=== PATIENT | female | born 1990 | race Caucasian/White ===

== ENCOUNTER 2020-10-10 18:29 | Inpatient (IN) ==
[2020-10-10] MEDS ORDERED: GADOBUTROL 65ML VIAL IV ONE (21:37)
[2020-10-10] MEDS ORDERED: VANCOMYCIN CONSULT ACTIVE PRN (22:20)
[2020-10-10] MEDS ORDERED: VANCOMYCIN HCL 2,000 MG in SODIUM CHLORIDE 0.9% 500 ML IV ONE (22:20)
[2020-10-10] MEDS ORDERED: SODIUM CHLORIDE 0.9% 500 ML IV SCH (22:30)
--- NOTE | 2020-10-10 23:11 | Emergency Department Note ---
History of Present Illness General Chief complaint: Infection Stated complaint: INFECTION; LOWER BACK Time Seen by Provider: 10/10/20 21:33 History of Present Illness Maximum Pain Intensity: 3 30-year-old female presents to the ED with a chief complaint of a infection in her lumbar region from a L5-S1 discectomy about a month ago. She was seen by her back surgeon today and she was told to come into the hospital tonight to be admitted for IV antibiotics and MRI with plans on operation tomorrow. The patient saw the back surgeon today in the office. She complains of some back discomfort. This is worsened by movement. Home Medications Medication Instructions Recorded Confirmed Type lorazepam 0.5 mg tablet 0.5 mg PO DAILY PRN #30 tab 08/15/20 10/10/20 Rx escitalopram oxalate 20 mg tablet 20 mg PO QAM 09/11/20 10/10/20 History omeprazole 20 mg capsule,delayed 20 mg PO QAM 09/11/20 10/10/20 History release gabapentin 100 mg capsule 100 mg PO Q8H #42 cap 09/13/20 10/10/20 Rx hydrocodone 5 mg-acetaminophen 325 1 - 2 tab PO Q4H PRN #20 tab 09/13/20 10/10/20 Rx mg tablet cephalexin 500 mg tablet 500 mg PO Q6H 14 Days #56 tab 09/29/20 10/10/20 Rx drospirenone 3 mg-ethinyl 1 tab PO DAILY 10/10/20 10/10/20 History estradiol 0.02 mg tablet (Loryna (28)) Allergies Allergy/AdvReac Type Severity Reaction Status Date / Time No Known Allergies Allergy Verified 10/10/20 22:03 Past Med/Surg History Medical History Anxiety and depression DDD (degenerative disc disease) GERD (gastroesophageal reflux disease) PCOS (polycystic ovarian syndrome) Surgical History H/O knee surgery Rt History of [place] teeth extracted Family History Mother Hypothyroidism Grandmother (Maternal) Hypothyroidism Grandmother (Paternal) Ovarian cancer Hypothyroidism Uterine cancer Other No family history of adverse response to anesthesia Social History Smoking Status: Never smoker Second Hand Exposure: No; Hx Alcohol Use: Yes Alcohol type: wine Hx Substance Use: No Preferred Language: [place]an Communication Ability: Effective Visual Impairment: Limited Hearing Ability: Normal Beliefs That Will Affect Care: None marital status: Current Living Situation: Spouse and Family Current Living Situation Comment: and 3 children current occupational status: employed Feels Safe at Home: Yes Childhood Exposure to Second-Hand Smoke: No Dental Care, Regularly: Yes Physical Activity Frequency: 3-4 Times per Week Seatbelt Use: always Sunscreen Use: Yes Assistive Devices: Contacts and Glasses Review of Systems A total of 10 systems reviewed and were otherwise negative Physical Exam Vital Signs Vital Signs - 24 hr 10/10/20 18:41 10/10/20 22:11 10/10/20 22:21 Temperature 37.2 C Temperature Source Temporal Artery Scan Pulse Rate 104 H 84 Pulse Rate from SpO2 Sensor 94 H Respiratory Rate 18 20 Respiratory Effort / Characteristics Non-Labored Spontaneous Respiratory Depth Normal Blood Pressure 125/88 108/87 Blood Pressure Mean 100 94 Blood Pressure Position Sitting Pulse Oximetry 99 90 98 Oxygen Delivery Method Room Air Room Air Sepsis Recent Fever Within 48 Hours No Sepsis New/Unexplained Change in Mental Status N/A Sepsis Action Taken by Nursing No Action Required 10/10/20 22:31 10/10/20 23:00 10/10/20 23:30 Temperature Temperature Source Pulse Rate 89 70 86 Pulse Rate from SpO2 Sensor 89 69 83 Respiratory Rate 20 14 24 Respiratory Effort / Characteristics Respiratory Depth Blood Pressure 102/86 129/85 117/77 Blood Pressure Mean 91 99 90 Blood Pressure Position Pulse Oximetry 99 99 99 Oxygen Delivery Method Sepsis Recent Fever Within 48 Hours Sepsis New/Unexplained Change in Mental Status Sepsis Action Taken by Nursing CONSTITUTIONAL/VITAL SIGNS: Reviewed / noted above. GENERAL: Non-toxic in appearance. INTEGUMENTARY: Warm, dry, and [place]. HEAD: Normocephalic. EYES: without scleral icterus or trauma. ENT/OROPHARYNX: clear and moist. LYMPHADENOPATHY/NECK: Is supple without lymphadenopathy or meningismus. RESPIRATORY: Clear to auscultation bilaterally. No increased work of breathing. CARDIOVASCULAR: Regular rate and rhythm. GI/ABDOMEN: Soft and nontender. No organomegaly or pulsatile mass. EXTREMITIES: Warm and well perfused. BACK: No CVA tenderness. There is an incision in the low back that appears to be somewhat dehisced. There are some mild erythema. There is also noted to be some discharge on the bandages. NEUROLOGICAL: Intact without focal deficits. PSYCHIATRIC: normal affect. MUSCULOSKELETAL: Normally developed with good muscle tone. TRIAGE NURSING DOCUMENTATION REVIEWED. Course Administered Medications Discontinued Medications Gadobutrol (Gadobutrol 65ml Vial) 7.5 ml IV ONCE ONE Stop: 10/10/20 21:38 Last Admin: 10/10/20 21:39 Dose: 7.5 ml Documented by: [id number] Medical Decision Making Differential Diagnosis Cellulitis, abscess, MRSA infection, DVT, necrotizing fasciitis, dermatitis, drug eruption, allergic reaction, as well as other pathologies. Medical Records Attestation: I reviewed the patient's medical records. Home Medications Current Medication List: was personally reviewed by me Laboratory Data Attestation: I reviewed the patient's lab results. Result diagrams: 10/10/20 23:18 10/10/20 23:18 Lab Results 10/10/20 10/10/20 10/10/20 Range/Units 23:00 23:00 23:18 WBC 8.37 (4.8-10.8) K/uL RBC 4.38 (4.2-5.4) M/uL Hgb 13.1 (12.0-16.0) g/dL Hct 38.9 (37-47) % MCV 88.8 (80-100) fL MCH 29.9 (25-34) pg MCHC 33.7 (32-36) g/dL RDW Std Deviation 39.9 (36.4-46.3) fL RDW Coeff of Rigo 12.4 (11.5-14.5) % Plt Count 301 (130-400) K/uL MPV 9.9 (7.4-10.4) fL Immature Gran % (Auto) 0.1 % Neut % (Auto) 56.1 % Lymph % (Auto) 36.8 % Amelia % (Auto) 6.0 % Eos % (Auto) 0.4 % Baso % (Auto) 0.6 % Neut # (Auto) 4.70 (1.4-6.5) K/uL Lymph # (Auto) 3.08 (1.2-3.4) K/uL Amelia # (Auto) 0.50 (0.11-0.59) K/uL Eos # (Auto) 0.03 (0-0.5) K/uL Baso # (Auto) 0.05 (0-0.2) K/uL Immature Gran # (Auto) 0.01 (0.00-0.02) K/uL Sodium (136-145) mmol/L Potassium (3.5-5.1) mmol/L Chloride (98-107) mmol/L Carbon Dioxide (21-32) mmol/L Anion Gap (3-11) BUN (7-18) mg/dl Creatinine (0.6-1.2) mg/dl Est Cr Clr Drug Dosing ml/min Est GFR ( Amer) ml/min Est GFR (Non-Af Amer) ml/min BUN/Creatinine Ratio (10-20) Glucose (70-99) mg/dl Calcium (8.5-10.1) mg/dl Total Bilirubin (0.2-1) mg/dl AST (15-37) U/L ALT (12-78) U/L Alkaline Phosphatase (45-117) U/L Total Protein (6.4-8.2) gm/dl Albumin (3.4-5.0) gm/dl Globulin (2.5-4.0) gm/dl Albumin/Globulin Ratio (0.9-2) TSH (0.300-4.500) uIu/ml Specimen Hemolysis COVID-19 Eval Order Covid19 at [facility] SARS-CoV-2 (PCR) NEGATIVE (Negative) 10/10/20 Range/Units 23:18 WBC (4.8-10.8) K/uL RBC (4.2-5.4) M/uL Hgb (12.0-16.0) g/dL Hct (37-47) % MCV (80-100) fL MCH (25-34) pg MCHC (32-36) g/dL RDW Std Deviation (36.4-46.3) fL RDW Coeff of Rigo (11.5-14.5) % Plt Count (130-400) K/uL MPV (7.4-10.4) fL Immature Gran % (Auto) % Neut % (Auto) % Lymph % (Auto) % Amelia % (Auto) % Eos % (Auto) % Baso % (Auto) % Neut # (Auto) (1.4-6.5) K/uL Lymph # (Auto) (1.2-3.4) K/uL Amelia # (Auto) (0.11-0.59) K/uL Eos # (Auto) (0-0.5) K/uL Baso # (Auto) (0-0.2) K/uL Immature Gran # (Auto) (0.00-0.02) K/uL Sodium 140 (136-145) mmol/L Potassium 3.7 (3.5-5.1) mmol/L Chloride 108 H (98-107) mmol/L Carbon Dioxide 24 (21-32) mmol/L Anion Gap 8.0 (3-11) BUN 8 (7-18) mg/dl Creatinine 0.70 (0.6-1.2) mg/dl Est Cr Clr Drug Dosing 115.9 ml/min Est GFR ( Amer) 133.8 ml/min Est GFR (Non-Af Amer) 115.5 ml/min BUN/Creatinine Ratio 11.8 (10-20) Glucose 88 (70-99) mg/dl Calcium 8.7 (8.5-10.1) mg/dl Total Bilirubin 0.3 (0.2-1) mg/dl AST 15 (15-37) U/L ALT 14 (12-78) U/L Alkaline Phosphatase 87 (45-117) U/L Total Protein 7.4 (6.4-8.2) gm/dl Albumin 3.4 (3.4-5.0) gm/dl Globulin 4.0 (2.5-4.0) gm/dl Albumin/Globulin Ratio 0.9 (0.9-2) TSH 4.680 H (0.300-4.500) uIu/ml Specimen Hemolysis COVID-19 Eval Order SARS-CoV-2 (PCR) (Negative) Imaging Data Radiologist's Impression: MRI of the lumbar spine reveals a superficial soft tissue abscess as well as some inflammation adjacent to the right paraspinal area. Small extradural abscess at the laminectomy site. Epidural inflammation and deformity of the thecal sac. Inflammatory changes along the right L5 and S1 nerve roots. The patient CBC and chemistry panel was unremarkable. The patient will be seen by the hospitalist for further inpatient evaluation and care. She was treated with IV vancomycin. 4 days MDM Narrative Patient presents with concerns of back infection. MRI suggest that that is the case. She will be admitted by the hospitalist service. She was given IV vancomycin. She will be seen tomorrow by the orthopedic spine surgeon. Impression & Plan Infection Discharge Plan Visit Data Chief Complaint: Infection Stated Complaint: INFECTION; LOWER BACK ED Provider: Abdelrahman Cedeño Discharge Problem: Infection Forms Stand Alone Forms: [facility] [place] [employer] Prescriptions Prescriptions: No Action lorazepam 0.5 mg tablet 0.5 mg PO DAILY PRN (Reason: anxiety) Qty: 30 RF: 0 cephalexin 500 mg tablet 500 mg PO Q6H 14 Days Qty: 56 RF: 1 omeprazole 20 mg capsule,delayed release(DR/EC) 20 mg PO QAM RF: 0 escitalopram oxalate 20 mg tablet 20 mg PO QAM RF: 0 hydrocodone-acetaminophen 5-325 mg Tablet 1 - 2 tab PO Q4H PRN (Reason: pain) Qty: 20 RF: 0 gabapentin 100 mg capsule 100 mg PO Q8H Qty: 42 RF: 0 drospirenone-ethinyl estradiol [Loryna (28)] 3-0.02 mg tablet 1 tab PO DAILY RF: 0 Referrals Referrals: Diandra Ray CRNP [Primary Care Provider] -
--- NOTE | 2020-10-10 23:28 | History & Physical Report ---
Date of Service October 10, 2020 Assessment & Plan (1) Spinal abscess: Plan: 30 yo F with hx GERD, PCOS, recent lumbar microdiscectomy at L5/S1, admitted for management of post-op spinal abscess. Spinal Abscess - Lumbar MRI: midline subcutaneous tissues at L5-S1 level is a irregular collection measuring 4.4cm CC, 3 cm TRV and 3 cm AP with rim enhancement around the margins. Impression: superficial soft tissue abscess at L5-S1, small extra dural abscess at laminectomy site. Epidural inflammation resulting in deformity of thecal sac. Inflammatory changes along right L5 and S1 nerve roots. - Spinal surgeon aware, to go for surgery in AM - Vanc - CBC normal, afebrile, nontoxic appearing - Q4h neurovascular checks, Q2H neuro exam checks - PRN tylenol for fever/pain - prn gabapentin for nerve pain Chronic Conditions: anx/depression: continue escitalopram PCOS: cont home OCP GERD: IV famotidine DVT ppx: low risk, will hold given surgery in AM FEN/GI: NPO, iv famotidine Dispo: Med/Tele Code Status: Full Code (2) Status post spinal surgery: (3) GERD without esophagitis: (4) PCOS (polycystic ovarian syndrome): (5) H/O microdiscectomy: History of Present Illness Chief Complaint: draining surgical site, s/p laminectomy Primary Care Provider: PPAA Gottlieb 30 yo F 2 weeks post op from L5-S1 microdiscectomy on 09/13/20, sent to ER by spine surgeon for persistently draining incision site. Was started on keflex for 14 days on 09/29 for incision infection, but has had persistent drainage despite antibiotic therapy. She denies any nausea, vomiting, diarrhea, new numbness/tingling/weakness in the lower extremities. She denies any incontinence of urine/stool, no pelvic numbness/tingling. No fevers/chills/night sweats. Lumbar spine MRI showing abscess superficial to spinal cord but with epidural inflammation. Admission for antibiotic management and surgery in the AM. Allergies Allergy/AdvReac Type Severity Reaction Status Date / Time No Known Allergies Allergy Verified 10/10/20 22:03 Home Medications Medication Instructions Recorded Confirmed Type lorazepam 0.5 mg tablet 0.5 mg PO DAILY PRN #30 tab 08/15/20 10/10/20 Rx escitalopram oxalate 20 mg tablet 20 mg PO QAM 09/11/20 10/10/20 History omeprazole 20 mg capsule,delayed 20 mg PO QAM 09/11/20 10/10/20 History release gabapentin 100 mg capsule 100 mg PO Q8H #42 cap 09/13/20 10/10/20 Rx hydrocodone 5 mg-acetaminophen 325 1 - 2 tab PO Q4H PRN #20 tab 09/13/20 10/10/20 Rx mg tablet cephalexin 500 mg tablet 500 mg PO Q6H 14 Days #56 tab 09/29/20 10/10/20 Rx drospirenone 3 mg-ethinyl 1 tab PO DAILY 10/10/20 10/10/20 History estradiol 0.02 mg tablet (Loryna (28)) Past Med/Surg History Medical History (Updated 10/11/20 @ 01:02 by Sandra Raygoza MD) Anxiety and depression DDD (degenerative disc disease) GERD (gastroesophageal reflux disease) PCOS (polycystic ovarian syndrome) Surgical History (Updated 10/11/20 @ 01:02 by Sandra Raygoza MD) H/O knee surgery Rt History of Status post spinal surgery [place] teeth extracted Family History Mother Hypothyroidism Grandmother (Maternal) Hypothyroidism Grandmother (Paternal) Ovarian cancer Hypothyroidism Uterine cancer Other No family history of adverse response to anesthesia Social History Smoking Status: Never smoker Second Hand Exposure: No; Hx Alcohol Use: Yes Alcohol type: wine Hx Substance Use: No Preferred Language: French Communication Ability: Effective Visual Impairment: Limited Hearing Ability: Normal Beliefs That Will Affect Care: None marital status: Current Living Situation: Spouse and Family Current Living Situation Comment: and 3 children current occupational status: employed Feels Safe at Home: Yes Childhood Exposure to Second-Hand Smoke: No Dental Care, Regularly: Yes Physical Activity Frequency: 3-4 Times per Week Seatbelt Use: always Sunscreen Use: Yes Assistive Devices: Contacts and Glasses Review of Systems Review of Systems: All systems reviewed & are unremarkable except as noted in Subjective Physical Exam Physical Exam: Constitutional: well, healthy appearing 30 year old female Eyes: EOMI, pupils equal and reactive bilaterally, no scleral icterus Cardiac: RRR, no murmurs, gallops or rubs. Normal S1, S2 Pulm: CTA BL, no wheezes, rhonchi, crackles or rubs, moving air well throughout both lungs Abd: soft, nontender, nondistended, normal bowel sounds, no rebound or guarding Extremities: 2+ peripheral pulses, no edema Neuro: no focal deficits, moving all 4 limbs, A&Ox3, sensation intact Back: spinal incision with some serous drainage onto bandage, visible draining hole Results & Data Results & Data ([facility]) Vital Signs (Past 12 Hours) Vital Signs Temp Pulse Resp BP Pulse Ox 10/10/20 18:41 37.2 C 104 H 18 125/88 99 Laboratory Results Laboratory Results WBC 8.37 K/uL (4.8-10.8) 10/10/20 23:18 RBC 4.38 M/uL (4.2-5.4) 10/10/20 23:18 Hgb 13.1 g/dL (12.0-16.0) 10/10/20 23:18 Hct 38.9 % (37-47) 10/10/20 23:18 MCV 88.8 fL (80-100) 10/10/20 23:18 MCH 29.9 pg (25-34) 10/10/20 23:18 MCHC 33.7 g/dL (32-36) 10/10/20 23:18 RDW Std Deviation 39.9 fL (36.4-46.3) 10/10/20 23:18 RDW Coeff of Rigo 12.4 % (11.5-14.5) 10/10/20 23:18 Plt Count 301 K/uL (130-400) 10/10/20 23:18 MPV 9.9 fL (7.4-10.4) 10/10/20 23:18 Immature Gran % (Auto) 0.1 % 10/10/20 23:18 Neut % (Auto) 56.1 % 10/10/20 23:18 Lymph % (Auto) 36.8 % 10/10/20 23:18 [place] % (Auto) 6.0 % 10/10/20 23:18 Eos % (Auto) 0.4 % 10/10/20 23:18 Baso % (Auto) 0.6 % 10/10/20 23:18 Neut # (Auto) 4.70 K/uL (1.4-6.5) 10/10/20 23:18 Lymph # (Auto) 3.08 K/uL (1.2-3.4) 10/10/20 23:18 [place] # (Auto) 0.50 K/uL (0.11-0.59) 10/10/20 23:18 Eos # (Auto) 0.03 K/uL (0-0.5) 10/10/20 23:18 Baso # (Auto) 0.05 K/uL (0-0.2) 10/10/20 23:18 Immature Gran # (Auto) 0.01 K/uL (0.00-0.02) 10/10/20 23:18 Sodium 140 mmol/L (136-145) 10/10/20 23:18 Potassium 3.7 mmol/L (3.5-5.1) 10/10/20 23:18 Chloride 108 mmol/L (98-107) H 10/10/20 23:18 Carbon Dioxide 24 mmol/L (21-32) 10/10/20 23:18 Anion Gap 8.0 (3-11) 10/10/20 23:18 BUN 8 mg/dl (7-18) 10/10/20 23:18 Creatinine 0.70 mg/dl (0.6-1.2) 10/10/20 23:18 Est Cr Clr Drug Dosing 115.9 ml/min 10/10/20 23:18 Est GFR ( Amer) 133.8 ml/min 10/10/20 23:18 Est GFR (Non-Af Amer) 115.5 ml/min 10/10/20 23:18 BUN/Creatinine Ratio 11.8 (10-20) 10/10/20 23:18 Glucose 88 mg/dl (70-99) 10/10/20 23:18 Calcium 8.7 mg/dl (8.5-10.1) 10/10/20 23:18 Total Bilirubin 0.3 mg/dl (0.2-1) 10/10/20 23:18 AST 15 U/L (15-37) 10/10/20 23:18 ALT 14 U/L (12-78) 10/10/20 23:18 Alkaline Phosphatase 87 U/L (45-117) 10/10/20 23:18 Total Protein 7.4 gm/dl (6.4-8.2) 10/10/20 23:18 Albumin 3.4 gm/dl (3.4-5.0) 10/10/20 23:18 Globulin 4.0 gm/dl (2.5-4.0) 10/10/20 23:18 Albumin/Globulin Ratio 0.9 (0.9-2) 10/10/20 23:18 TSH 4.680 uIu/ml (0.300-4.500) H 10/10/20 23:18 Free T4 1.08 ng/dl (0.8-1.6) 10/10/20 23:18 Specimen Hemolysis 10/10/20 23:18 COVID-19 Eval Order Covid19 at [facility] 10/10/20 23:00 SARS-CoV-2 (PCR) NEGATIVE (Negative) 10/10/20 23:00 Supervising Physician Co-Signing Physician Notes Patient seen and examined, chart reviewed, case discussed with Dr. Raygoza and I agree with her assessment and plan as documented above. Briefly, patient is a 30-year-old female status post L5-S1 microdiscectomy performed on 09-13-20 presenting with persistent incisional drainage. She has been on Keflex since 09/29 with no improvement. She denies fever/chills/weakness/fatigue/malaise/nausea. Denies worsening pain in the back. Denies new or worsening weakness or neurological deficit. She has a dressing in place over her surgical site and reports yellowish/pinkish discharge persistent. On physical exam she is afebrile, hemodynamically stable, nontoxic in appearance Skinsurgical site covered with serous drainage, mild dehiscence with drainage HEENTnormocephalic/atraumatic, pupils equal and reactive to light, neck supple with no meningeal signs Heart+ S1, S2, regular, no murmur/rub/gallop Lungsequal air entry bilaterally, no rales/rhonchi/wheezes Abdomenpositive bowel sounds, soft, nontender, nondistended Extremitieswarm, well-perfused, no edema Neurosensation intact, strength 5/5 Labs and images reviewed. Significant for irregular collection measuring 4.4 cm x 3 cm x 3 cm located in the subcutaneous tissues at the L5-S1 level. Rim enhancement around the margins of this collection. Enhancing tissue extending from the collection along the right side of the L5 spinous process into the deep right paraspinal muscle through the laminectomy defect and into the spinal canal. Epidural medication resulting in deformity of the thecal sac. Assessment/[id number] female status post L5-S1 microdiscectomy performed on 09/05/2020 returning with surgical site abscess. Patient afebrile, hemodynamically stable, nontoxic in appearance. No systemic evidence of infect ion. No new neurological deficits Admit to medical IV antibiotics with vancomycin N.p.o. after midnight in preparation for OR tomorrow for washout Remainder of plan as above Resident Activity Tracking Resident Involvement: Resident Care Provided Care Provided: Adult [facility] Medicine
[2020-10-10 23:39] LABS: Basophils # (auto) 0.05 K/uL (0-0.2); Basophils % (auto) 0.6 %; Eosinophils # (auto) 0.03 K/uL (0-0.5); Eosinophils % (auto) 0.4 %; Hematocrit (blood only) 38.9 % (37-47); Hemoglobin 13.1 g/dL (12.0-16.0); Immature Granulocytes # (auto) 0.01 K/uL (0.00-0.02); Immature Granulocytes % (auto) 0.1 %; Lymphocytes # (auto) 3.08 K/uL (1.2-3.4); Lymphocytes % (auto) 36.8 %; Mean Corpuscular Hemoglobin 29.9 pg (25-34); Mean Corpuscular Hgb Conc 33.7 g/dL (32-36); Mean Corpuscular Volume 88.8 fL (80-100); Mean Platelet Volume 9.9 fL (7.4-10.4); Neutrophils % (auto) 56.1 %; Platelet Count 301 K/uL (130-400); RDW Coefficient of Variation 12.4 % (11.5-14.5); RDW Standard Deviation 39.9 fL (36.4-46.3); Red Blood Count 4.38 M/uL (4.2-5.4); White Blood Count 8.37 K/uL (4.8-10.8)
[2020-10-11 00:20] LABS: Albumin Globulin Ratio 0.9 (0.9-2); Albumin Level 3.4 gm/dl (3.4-5.0); BUN Creatinine Ratio 11.8 (10-20); Bilirubin,Total 0.3 mg/dl (0.2-1); Calcium 8.7 mg/dl (8.5-10.1); Creatinine Clr Calc Pharmacy 115.9 ml/min; Est GFR (African American) 133.8 ml/min; Est GFR (Non-African American) 115.5 ml/min; Potassium 3.7 mmol/L (3.5-5.1); Thyroid Stimulating Hormone 4.68 uIu/ml (0.300-4.500); Total Protein 7.4 gm/dl (6.4-8.2)
[2020-10-11 00:38] LABS: T4 Free Thyroxine 1.08 ng/dl (0.8-1.6)
[2020-10-11 02:16] LABS: Appearance Urine Clear (Clear); Bilirubin Urine Negative (Negative); Blood Urine Negative (Negative); Color Urine Yellow; Glucose Urine UA Negative (Negative); Ketones Urine Trace (Negative); Leukocyte Esterase Urine Negative (Negative); Nitrite Urine Negative (Negative); Protein Urine Negative (Negative); Specific Gravity Urine 1.033 (1.000-1.030); Urobilinogen Urine Negative (Negative)
[2020-10-11] MEDS ORDERED: ACETAMINOPHEN 325 MG TAB PO PRN (03:43)
[2020-10-11] MEDS ORDERED: LORazepam 0.5 MG TAB PO PRN ×2 (03:43→17:01)
[2020-10-11] MEDS ORDERED: ONDANSETRON INJ 2 MG/ML 2 ML VIAL IV PRN ×2 (03:43→11:46)
[2020-10-11] MEDS ORDERED: VANCOMYCIN CONSULT ACTIVE PRN (03:43)
--- NOTE | 2020-10-11 03:54 | Billing Data ---
Date of Service October 10, 2020 Coding Level of Care Code 27313 Initial Inpt Care Lvl 2
[2020-10-11] MEDS: SODIUM CHLORIDE 0.9% 1000ML 1,000 ML IV SCH ×2 (05:19→17:06)
[2020-10-11] MEDS: GABAPENTIN 100 MG CAP PO SCH ×3 (05:19→18:07)
--- NOTE | 2020-10-11 06:44 | Orthopedic Progress Note ---
Date of Service October 11, 2020 Assessment & Plan (1) Status post spinal surgery: Plan: Informed consent confirmed for today's operation: Irrigation and Debridement Lumbar Spine Hold antibiotics until intra-op cultures completed (2) Wound drainage: Admission and Anticipated Discharge Date Admission Date: October 10, 2020 Subjective Patient comfortable in bed No new numbness/weakness No increase in back pain denies headache, nausea or vomiting, diplopia denies radiation of pain from back to lower extremity MRI lumbar w/wo completed overnight recommendations for no antibiotics was given until intra-op cultures taken today but unfortunately, she received one dose of vancomycin IV overnight. this has been stopped since. npo for surgery patient marked, any remaining questions answered Physical Exam Physical Exam: vitals: see vital signs section dressing: mild serosang discharge drain: N/A vascular: no calf tenderness or swelling bilaterally. no signs of DVT Musculoskeletal: 5/5 motor strength bilateral L2-S1 except right L5 3/5 toe extension, 4/5 ankle dorsiflexion, right S1 4/5 (unchanged from before index s urgery) Neurologic: Sensation 2/2 to light touch bilateral L2-S1 except right L5 1/2, S1 1/2 Results & Data ([facility]) Vital Signs (Past 12 Hours) Vital Signs Temp Pulse Resp BP BP Pulse Ox 10/11/20 04:20 74 10/11/20 04:10 36.5 C 12 115/75 97 10/11/20 03:51 97 10/11/20 01:15 77 14 118/72 99 10/11/20 01:00 82 14 121/78 98 10/11/20 00:30 70 16 97 10/11/20 00:02 95 H 25 H 10/10/20 23:30 86 24 117/77 99 10/10/20 23:00 70 14 129/85 99 10/10/20 22:47 36.5 C 14 115/75 97 10/10/20 22:31 89 20 102/86 99 10/10/20 22:21 98 10/10/20 22:11 84 20 108/87 90 10/10/20 18:41 37.2 C 104 H 18 125/88 99 Laboratory Results Wound swabs cultures pending, negative gram stain and no organisms seen on gram stain Diagnostic Findings MRI lumbar w/wo contrast large fluid collection superficial to fascia smaller fluid collection at laminectomy site with no significant associated compression removal of previous disc herniation with small central disc bulge with no significant impingement on the traversing nerve root reported as " Vertebral body heights well-maintained. No abnormal marrow signal. L5-S1 moderate disc space narrowing. Small broad-based disc bulge with a right paracentral component at this level. Small central annular fissure. The conus is intact. Status post right hemilaminectomy. In the posterior midline subcutaneous tissues at the L5-S1 level is a irregular collection measuring 4.4 cm CC, 3 cm TRV and 3 cm AP. Rim enhancement around the margins of this collection. Enhancing tissue extending from this collection along the right side of the L5 spinous process into the deep right paraspinal muscles through the laminectomy defect and into the spinal canal. At the laminectomy defect there is a discrete loculated collection measuring 1.5 cm AP. There is enhancing tissue along the right lateral and anterior margin of the thecal sac. Mild deformity of the right posterolateral thecal sac margin. Enhancing tissue seen extending through the right L5-S1 neural foramen and surrounding the right S1 nerve root and extending into the right S1 neural foramen. Impression: Superficial soft tissue abscess at L5-S1. Adjacent right paraspinal inflammation. Small extradural abscess at the laminectomy site. Epidural inflammation as described resulting in deformity of the thecal sac. Inflammatory changes along the right L5 and S1 nerve roots. " PG Care Time/CCT Total # of Minutes Spent Total Time Spent with Patient: Total time spent is greater than 50% in coordination of care (as documented) at patient's floor/unit and/or counseling patient: Coding Level of Care Code None Diagnoses Status post spinal surgery Z98.890 Wound drainage T14.8XXA
[2020-10-11 06:55] LABS: Basophils # (auto) 0.04 K/uL (0-0.2); Basophils % (auto) 0.6 %; Eosinophils # (auto) 0.05 K/uL (0-0.5); Eosinophils % (auto) 0.7 %; Hematocrit (blood only) 36.8 % (37-47); Hemoglobin 12.2 g/dL (12.0-16.0); Immature Granulocytes # (auto) 0.01 K/uL (0.00-0.02); Immature Granulocytes % (auto) 0.1 %; Lymphocytes # (auto) 2.82 K/uL (1.2-3.4); Lymphocytes % (auto) 38.9 %; Mean Corpuscular Hemoglobin 29.2 pg (25-34); Mean Corpuscular Hgb Conc 33.2 g/dL (32-36); Mean Platelet Volume 9.2 fL (7.4-10.4); Monocytes # (auto) 0.47 K/uL (0.11-0.59); Monocytes % (auto) 6.5 %; Neutrophils # (auto) 3.86 K/uL (1.4-6.5); Neutrophils % (auto) 53.2 %; Platelet Count 254 K/uL (130-400); RDW Coefficient of Variation 12.4 % (11.5-14.5); RDW Standard Deviation 40.1 fL (36.4-46.3); Red Blood Count 4.18 M/uL (4.2-5.4); White Blood Count 7.25 K/uL (4.8-10.8)
--- NOTE | 2020-10-11 07:28 | Medical Student Progress Note ---
Date of Service October 11, 2020 Assessment & Plan (1) Spinal abscess: Plan: Lumbar MRI impression: superficial soft tissue abscess at L5-S1, small extradural abscess at laminectomy site. Epidural inflammation resulting in deformity of thecal sac. -No WBC or organism count at site -minimally elevated c-reactive protein -blood cultures are pending -Aerobic/anaerobic cultures pending -consistent with spinal abscess -CBC normal, afebrile, nontoxic appearing -Q4h neurovascular checks, Q2H neuro exam checks -PRN tylenol for fever/pain -prn gabapentin for nerve pain -irrigation and debridement for lumbar spine surgery to be done later this am Present on Admission?: Yes (2) Fatigue: Plan: -highest recorded TSH 4.680 -says her TSH always runs high-normal but today is abnormally high -extensive fam hx of hypothyroidism -states her fatigue is chronic -pt got minimal sleep last night -repeat TSH after discharge to see if her TSH returns to baseline -f/u with PCP to be fully evaluated for TSH abnormalities Present on Admission?: Yes (3) Lumbar back pain with radiculopathy affecting right lower extremity: Plan: -motor strength 4+/5 for knee extensors and toe extensors -sensory grossly intact in all four limbs -Pt states pain is unchanged from baseline -pt has no further concerns at this time Present on Admission?: Yes Plan: Chronic Conditions: anx/depression: continue escitalopram PCOS: cont home OCP GERD: IV famotidine DVT ppx: low risk, will hold given surgery in AM FEN/GI: NPO, iv famotidine Dispo: Med/Tele Code Status: Full Code (2) Status post spinal surgery: (3) GERD without esophagitis: (4) PCOS (polycystic ovarian syndrome): (5) H/O microdiscectomy: Admission and Anticipated Discharge Date Admission Date: October 10, 2020 Hayde Darnell is a 30 yr/oF w a hx of anxiety/depression, GERD, DDD, PCOS s/p L5-S1 microdiscectomy who was admitted yesterday for management of a post-op spinal abscess. About a week ago she noticed signs of inflammation around the surgical site and was prescribed cefalexin from her surgeon. The infection wasn't improving and her surgeon had her admitted to the hospital for IV a/bx. Today, she has no concerns other than fatigue from poor sleep last night. She noted fatigue is common for her recently. Discomfort in her lower back is minimal. She denies any chest pain, SOB, abdominal pain, neck pain or stiffness. She does have a headache today but says that is normal for her. She is is not having any weakness, numbness, tingling, or pain in her lower extremities except for preexisting weakness she has had in the right leg before the surgery. She denies incontinence of urine or stool. Pt is scheduled for irrigation and debridement of the lumbar spine today. Review of Systems Review of Systems: All systems reviewed & are unremarkable except as noted in HPI & below Physical Exam Constitutional: non-toxic appearing, no acute distress Eyes: PERRL, conjunctivae normal, anicteric sclerae ENMT: external ear and nose normal, oropharynx normal Neck: normal visual inspection Respiratory: normal respiratory effort, lungs clear to auscultation Cardiovascular: RRR, no murmur, no edema Musculoskeletal: minimal lower back tenderness Skin: no rashes, warm and dry Neurologic: PERRL, EOMI, accommodation nl, no face palsy, no dysarthria normal touch/pain/proprioception, CN's II-XI intact bilaterally, deep tendon reflexes 2+ bilaterally and plantar reflexes intact bilaterally 4+/5 weakness lower right extremity, sensory intact bilaterally Psychiatric: Orientation: cooperative Results & Data ([facility]) Vital Signs (Past 12 Hours) Vital Signs Temp Pulse Pulse Resp BP BP BP 10/11/20 11:30 36.8 C 74 18 151/97 H 10/11/20 11:25 37 C 84 20 116/82 10/11/20 08:19 36.8 C 77 16 114/79 10/11/20 08:00 73 10/11/20 04:20 74 10/11/20 04:10 36.5 C 12 115/75 10/11/20 03:51 10/11/20 01:15 77 14 118/72 10/11/20 01:00 82 14 121/78 Pulse Ox 10/11/20 11:30 94 10/11/20 11:25 99 10/11/20 08:19 98 10/11/20 08:00 10/11/20 04:20 10/11/20 04:10 97 10/11/20 03:51 97 10/11/20 01:15 99 10/11/20 01:00 98 Laboratory Results Laboratory Results - last 24 hr 10/10/20 10/10/20 10/10/20 23:00 23:00 23:18 WBC 8.37 RBC 4.38 Hgb 13.1 Hct 38.9 MCV 88.8 MCH 29.9 MCHC 33.7 RDW Std Deviation 39.9 RDW Coeff of Rigo 12.4 Plt Count 301 MPV 9.9 Immature Gran % (Auto) 0.1 Neut % (Auto) 56.1 Lymph % (Auto) 36.8 Blount % (Auto) 6.0 Eos % (Auto) 0.4 Baso % (Auto) 0.6 Neut # (Auto) 4.70 Lymph # (Auto) 3.08 Blount # (Auto) 0.50 Eos # (Auto) 0.03 Baso # (Auto) 0.05 Immature Gran # (Auto) 0.01 Sodium Potassium Chloride Carbon Dioxide Anion Gap BUN Creatinine Est Cr Clr Drug Dosing Est GFR ( Amer) Est GFR (Non-Af Amer) BUN/Creatinine Ratio Glucose Calcium Total Bilirubin AST ALT Alkaline Phosphatase Total Protein Albumin Globulin Albumin/Globulin Ratio TSH Free T4 Specimen Hemolysis Urine Color Urine Appearance Urine pH Ur Specific Dep[place] Urine Protein Urine Glucose (UA) Urine Ketones Urine Blood Urine Nitrite Urine Bilirubin Urine Urobilinogen Ur Leukocyte Esterase COVID-19 Eval Order Covid19 at [facility] SARS-CoV-2 (PCR) NEGATIVE Blood Type Antibody Screen 10/10/20 10/11/20 10/11/20 23:18 01:00 06:41 WBC 7.25 RBC 4.18 L Hgb 12.2 Hct 36.8 L MCV 88.0 MCH 29.2 MCHC 33.2 RDW Std Deviation 40.1 RDW Coeff of Rigo 12.4 Plt Count 254 MPV 9.2 Immature Gran % (Auto) 0.1 Neut % (Auto) 53.2 Lymph % (Auto) 38.9 Blount % (Auto) 6.5 Eos % (Auto) 0.7 Baso % (Auto) 0.6 Neut # (Auto) 3.86 Lymph # (Auto) 2.82 Blount # (Auto) 0.47 Eos # (Auto) 0.05 Baso # (Auto) 0.04 Immature Gran # (Auto) 0.01 Sodium 140 Potassium 3.7 Chloride 108 H Carbon Dioxide 24 Anion Gap 8.0 BUN 8 Creatinine 0.70 Est Cr Clr Drug Dosing 115.9 Est GFR ( Amer) 133.8 Est GFR (Non-Af Amer) 115.5 BUN/Creatinine Ratio 11.8 Glucose 88 Calcium 8.7 Total Bilirubin 0.3 AST 15 ALT 14 Alkaline Phosphatase 87 Total Protein 7.4 Albumin 3.4 Globulin 4.0 Albumin/Globulin Ratio 0.9 TSH 4.680 H Free T4 1.08 Specimen Hemolysis Urine Color Yellow Urine Appearance Clear Urine pH 7.0 Ur Specific Dep[place]w 1.033 H Urine Protein Negative Urine Glucose (UA) Negative Urine Ketones Trace H Urine Blood Negative Urine Nitrite Negative Urine Bilirubin Negative Urine Urobilinogen Negative Ur Leukocyte Esterase Negative COVID-19 Eval Order SARS-CoV-2 (PCR) Blood Type Antibody Screen 10/11/20 10/11/20 06:41 06:41 WBC RBC Hgb Hct MCV MCH MCHC RDW Std Deviation RDW Coeff of Rigo Plt Count MPV Immature Gran % (Auto) Neut % (Auto) Lymph % (Auto) Blount % (Auto) Eos % (Auto) Baso % (Auto) Neut # (Auto) Lymph # (Auto) Blount # (Auto) Eos # (Auto) Baso # (Auto) Immature Gran # (Auto) Sodium 142 Potassium 4.0 Chloride 111 H Carbon Dioxide 25 Anion Gap 6.0 BUN 7 Creatinine 0.62 Est Cr Clr Drug Dosing 130.8 Est GFR ( Amer) 139.3 Est GFR (Non-Af Amer) 120.2 BUN/Creatinine Ratio 11.9 Glucose 91 Calcium 8.2 L Total Bilirubin AST ALT Alkaline Phosphatase Total Protein Albumin Globulin Albumin/Globulin Ratio TSH Free T4 Specimen Hemolysis Urine Color Urine Appearance Urine pH Ur Specific [place] Urine Protein Urine Glucose (UA) Urine Ketones Urine Blood Urine Nitrite Urine Bilirubin Urine Urobilinogen Ur Leukocyte Esterase COVID-19 Eval Order SARS-CoV-2 (PCR) Blood Type A Positive Antibody Screen NEGATIVE
[2020-10-11 07:29] LABS: BUN Creatinine Ratio 11.9 (10-20); Calcium 8.2 mg/dl (8.5-10.1); Creatinine Clr Calc Pharmacy 130.8 ml/min; Est GFR (African American) 139.3 ml/min; Est GFR (Non-African American) 120.2 ml/min
--- NOTE | 2020-10-11 07:40 | XRay Report ---
SINGLE VIEW CHEST CLINICAL HISTORY: Generalized weakness. FINDINGS: An AP, portable, upright chest radiograph is obtained. No prior studies are available for c omparison at the time of dictation. The cardiomediastinal silhouette is unremarkable. The lungs and pleural spaces are clear. No pneumothorax is seen. The bony thorax is grossly intact. IMPRESSION: No active disease in the chest. ACT 112: Negative or not required by law. Electronically signed by: Kevin Kim M.D. 10/11/2020 7:38 AM
[2020-10-11] MEDS: ESCITALOPRAM OXALATE 20 MG TAB PO SCH (08:41)
[2020-10-11] MEDS ORDERED: FAMOTIDINE 20 MG in SYRINGE 3 ML IV SCH (09:00)
--- NOTE | 2020-10-11 09:07 | Magnetic Resonance Report ---
MRI OF THE LUMBAR SPINE COMBO CLINICAL HISTORY: Status post discectomy with drainage. COMPARISON STUDY: MRI of the lumbar spine dated 07/14/2020. TECHNIQUE: MRI of the lumbar spine is performed utilizing various T1 and T2-weighted sequences in the axial and sagittal planes. Contrast-enhanced sequences are acquired following the IV administration of 7.5 cc of Gadavist. FINDINGS: Lumbar spine: Vertebral body height and alignment are maintained throughout the lumbar spine. Normal marrow signal intensity is preserved throughout the visualized bony structures. There is evidence of right hemilaminectomy at L5-S1. The transverse and spinous processes appear intact. No destructive rachael ny lesion is seen. There is no evidence of spondylolysis. Intervertebral discs: There is degenerative disc desiccation and loss of height at L5-S1. The remaini ng discs are normal in height and signal intensity. There is no fluid within the L5-S1 disc space. Spinal cord and central canal: The visualized spinal cord is normal in morphology and signal intensit y. The conus medullaris terminates at the L1-L2 interspace. The nerve roots of the cauda equina are n ormal in morphology. No abnormal postcontrast enhancement is identified. There is nonspecific enhanci ng soft tissue identified around the thecal sac at L5-S1. This is best seen on axial image #29. L1-L2: Unremarkable. L2-L3: Unremarkable. L3-L4: Unremarkable. L4-L5: Mild facet arthropathy is of no consequence. The central canal and neural foramina are patent. L5-S1: There is a small posterior disc bulge with annular fissure. This is slightly eccentric to the right and abuts the transiting nerve roots. There is no significant acquired compromise of the centra l canal. There is mild bilateral subarticular stenosis. In conjunction with facet arthropathy there i s mild right greater than left neural foraminal narrowing. Sacrum: The visualized sacrum is normal in morphology and signal intensity. Soft tissues: Postoperative change is seen within the paraspinous soft tissues at L5-S1. There is a s mall peripherally enhancing fluid collection identified in the right hemilaminectomy defect. This is best seen on axial image #29 and measures 1.6 x 1.5 x 0.5 cm. This abuts the posterior aspect of the thecal sac and extend into the right posterolateral epidural space. There is nonspecific edema and pa tchy enhancement within the right paraspinous musculature at this level. Nonspecific enhancing soft t issue is identified around the thecal sac at this level, greatest from the 6:00 to 12:00 position. Th is extends into the right neural foramen. There is an additional complex fluid collection identified within the dorsal subcutaneous soft tissues deep to the incision site. This measures approximately 5 x 4 x 3 cm as seen on axial image #30. The retroperitoneal structures are grossly unremarkable but in completely evaluated. IMPRESSION: 1. There is postoperative change from right hemilaminectomy at L5-S1. 2. There is no MRI evidence of discitis/osteomyelitis. 3. There is a 1.6 cm peripherally enhancing fluid collection centered at the right hemilaminectomy de fect. This closely approximates the posterior aspect of the thecal sac and extends into the posterior epidural space. This may represent a small postoperative seroma or hematoma. Infection/abscess would be impossible to exclude. 4. Nonspecific enhancement is seen around the thecal sac at L5-S1 extending into the right neural for amen. This may be an expected postoperative finding/granulation tissue. Infection would be impossible to exclude. 5. There is an approximately 5 cm complex fluid collection within the subcutaneous soft tissues deep to the incision site. Differential considerations include seroma, hematoma, or abscess. The sterility cannot be evaluated by MRI. 6. There is nonspecific edema and enhancement within the right paraspinous musculature at the operati ve level. 7. Additional findings as above. Dictated: 10/11/2020 8:11 AM Transcribed: 10/11/2020 8:42 AM Onelia [id number] [email or web address] Electronically signed by: Kevin Kim M.D. 10/11/2020 9:06 AM
[2020-10-11] MEDS ORDERED: fentaNYL citrate 100 MCG/2 ML VIAL ONE ×3 (10:40→13:31)
[2020-10-11] MEDS ORDERED: MIDAZOLAM HCL 1 MG/ML 2ML VIAL ONE (10:40)
--- NOTE | 2020-10-11 11:13 | Anesthesiology Consultation ---
Date of Service October 11, 2020 Assessment & Plan Chart Review Chart Review: Acceptable Risk for Surgery Consults Requested none History Surgery Operation Date: 10/11/20 08:40 Proposed Procedures p Incision and Drainage Lumbar - Hermilo Colon MD Height/Weight Height: 5 ft 3 in Weight: 79 kg Allergies Allergy/AdvReac Type Severity Reaction Status Date / Time No Known Allergies Allergy Verified 10/10/20 22:03 Medications Home Medications Medication Instructions Recorded Confirmed Last Taken lorazepam 0.5 mg tablet 0.5 mg PO DAILY PRN #30 tab 08/15/20 10/10/20 09/11/20 escitalopram oxalate 20 mg tablet 20 mg PO QAM 09/11/20 10/10/20 09/13/20 04:30 omeprazole 20 mg capsule,delayed 20 mg PO QAM 09/11/20 10/10/20 09/13/20 04:30 release gabapentin 100 mg capsule 100 mg PO Q8H #42 cap 09/13/20 10/10/20 Unknown hydrocodone 5 mg-acetaminophen 325 1 - 2 tab PO Q4H PRN #20 tab 09/13/20 10/10/20 Unknown mg tablet cephalexin 500 mg tablet 500 mg PO Q6H 14 Days #56 tab 09/29/20 10/10/20 Unknown drospirenone 3 mg-ethinyl 1 tab PO DAILY 10/10/20 10/10/20 Unknown estradiol 0.02 mg tablet (Loryna (28)) Active Medications Generic Name Dose Route Start Last Admin Trade Name Freq PRN Reason Stop Dose Admin Escitalopram Oxalate 20 mg 10/11/20 09:00 10/11/20 08:41 Escitalopram Oxalate 20 Mg Tab PO 11/10/20 08:59 20 mg QAM RADHA Administration Gabapentin 100 mg 10/11/20 03:43 10/11/20 05:19 Gabapentin 100 Mg Cap PO 11/10/20 03:42 100 mg Q8H RADHA Administration Sodium Chloride 1,000 mls @ 125 mls/hr 10/11/20 04:00 10/11/20 10:58 Nss 1000ml IV 10/11/20 19:59 0 mls/hr .Q8H RADHA Infusion Famotidine 20 mg/ Syringe 5 mls @ 2.5 mls/min 10/11/20 09:00 10/11/20 08:40 IV 11/10/20 08:59 2.5 mls/min BID RADHA Administration Miscellaneous 1 ea 10/11/20 04:00 10/11/20 08:41 Oral Contraceptive~Order Awaiting Action N/A 11/10/20 03:59 Not Given QS RADHA Past Medical History Medical History Anxiety and depression DDD (degenerative disc disease) GERD (gastroesophageal reflux disease) PCOS (polycystic ovarian syndrome) Past Family History Family History Mother Hypothyroidism Grandmother (Maternal) Hypothyroidism Grandmother (Paternal) Ovarian cancer Hypothyroidism Uterine cancer Other No family history of adverse response to anesthesia Past Surgical History Surgical History H/O knee surgery History of Status post spinal surgery [place] teeth extracted Social History Smoking Status: Current some day smoker Do You Dip or Chew Tobacco: No Hx Alcohol Use: No Alcohol type: wine alcohol intake frequency: 0-2 drinks per day Hx Substance Use: No substance use type: does not use Physical Exam Vital Signs Last Vital Signs Temp 36.8 C 10/11/20 08:19 Pulse 77 10/11/20 08:19 Resp 16 10/11/20 08:19 BP 114/79 10/11/20 08:19 Pulse Ox 98 10/11/20 08:19 Testing Laboratory Results 10/11/20 06:41 10/11/20 06:41 Urine Color Yellow 10/11/20 01:00 Urine Appearance Clear (Clear) 10/11/20 01:00 Urine pH 7.0 (4.5-7.5) 10/11/20 01:00 Ur Specific Doran 1.033 (1.000-1.030) H 10/11/20 01:00 Urine Protein Negative (Negative) 10/11/20 01:00 Urine Glucose (UA) Negative (Negative) 10/11/20 01:00 Urine Ketones Trace (Negative) H 10/11/20 01:00 Urine Nitrite Negative (Negative) 10/11/20 01:00 Ur Leukocyte Esterase Negative (Negative) 10/11/20 01:00 Blood Type A Positive 10/11/20 06:41 Antibody Screen NEGATIVE 10/11/20 06:41
[2020-10-11] MEDS ORDERED: LIDOCAINE 2% 2 ML VIAL/AMP(20MG/ML) INFIL ONE (11:15)
[2020-10-11 11:16] LABS: Pregnancy Test, Serum Negative (Negative)
[2020-10-11] MEDS ORDERED: PROPOFOL IV EMULSION 10 MG/ML 20 ML VIAL IV ONE (11:16)
[2020-10-11] MEDS ORDERED: ONDANSETRON INJ 2 MG/ML 2 ML VIAL ONE (11:16)
[2020-10-11] MEDS ORDERED: ROCURONIUM BROMIDE 10 MG/ML 5 ML VIAL IV ONE (11:16)
[2020-10-11] MEDS ORDERED: DEXAMETHASONE SOD INJ 4 MG/ML VIAL ONE (11:16)
[2020-10-11] MEDS ORDERED: FAMOTIDINE/PF 20 MG/2 ML VIAL IV ONE (11:19)
[2020-10-11] MEDS ORDERED: SCOPOLAMINE 1 MG TDSY TD ONE (11:25)
[2020-10-11] MEDS ORDERED: ePHEDrine sulfate 50 MG/ML AMP IV PRN (11:46)
[2020-10-11] MEDS ORDERED: fentaNYL citrate 100 MCG/2 ML VIAL IV PRN (11:46)
[2020-10-11] MEDS ORDERED: ATROPINE SULFATE 0.1 MG/ML 10ML SYR IV PRN (11:46)
[2020-10-11] MEDS ORDERED: GELATIN SPONGE SZ 100 ONE (11:46)
[2020-10-11] MEDS ORDERED: HYDROmorphone INJ 2 MG/ML SYR/VIAL IV PRN (11:46)
[2020-10-11] MEDS ORDERED: THROMBIN FOR SOLN 20000 UNIT KIT ONE (11:46)
[2020-10-11] MEDS ORDERED: VANCOMYCIN HCL 1,500 MG in SODIUM CHLORIDE 0.9% 500 ML IV SCH (12:00)
[2020-10-11] MEDS ORDERED: PHENYLEPHRINE 100MCG/ML 5ML SYR ONE (12:19)
[2020-10-11] MEDS ORDERED: METOCLOPRAMIDE HCL INJ 5 MG/ML 2 ML VIAL ONE (12:19)
[2020-10-11] MEDS ORDERED: VANCOMYCIN HCL 1000MG/20ML VIAL ONE (12:41)
[2020-10-11] MEDS ORDERED: GLYCOPYRROLATE 0.2 MG/ML VIAL ONE (14:00)
[2020-10-11] MEDS ORDERED: NEOSTIGMINE METHYLSULFATE 1 MG/ML 10ML VIAL ONE (14:00)
[2020-10-11] MEDS ORDERED: KETOROLAC 30 MG/ML VIAL ONE (14:04)
[2020-10-11] MEDS ORDERED: MEPERIDINE HCL 25 MG/ML CARP/VIAL IV PRN (15:18)
[2020-10-11] MEDS ORDERED: MEPERIDINE HCL 25 MG/ML CARP/VIAL ONE (15:18)
--- NOTE | 2020-10-11 15:29 | Post Operative Brief Note ---
PG Immediate Post Op with CF Date of Surgery October 11, 2020 Pre & Post Diagnosis Operation Date: 10/11/20 Pre-Op Diagnosis: Post-op Lumbar Discectomy Persistent Drainage Post-Op Diagnosis: Post-op Lumbar Discectomy Seroma vs. Infection I identified the patient and participated in the time-out.: Yes Procedure Irrigation and Debridement Posterior Lumbar Spine Surgeon Hermilo Cooln MD Upper Inspector Mg Matta PA-C Estimated Blood Loss 50 Findings Consistent with Post-Op Diagnosis No obvious purulent collection Serous fluid collection superficial to the fascia, large intact fascia layer small serous fluid collection around dura Specimens Specimen Description: 1: Above Fascia 2: Deep to Fascia 3: Above Fascia 4: Deep to Fascia 5: Epidural Drains Hemovac Drain
--- NOTE | 2020-10-11 15:34 | Anesthesiology Progress Note ---
Date of Service October 11, 2020 Anesthesia Post Procedure Vital Signs Vital Signs: Temp Pulse Pulse Pulse Resp BP BP 10/11/20 15:25 111 H 16 117/80 10/11/20 15:15 114 H 22 123/86 10/11/20 15:05 116 H 20 122/89 10/11/20 14:57 97.9 F 123 H 84 15 134/93 10/11/20 11:30 98.2 F 74 18 151/97 H 10/11/20 11:25 98.6 F 84 20 10/11/20 08:19 98.2 F 77 16 10/11/20 08:00 73 10/11/20 04:20 74 10/11/20 04:10 97.7 F 12 10/11/20 03:51 10/11/20 01:15 77 14 118/72 10/11/20 01:00 82 14 121/78 10/11/20 00:30 70 16 10/11/20 00:02 95 H 25 H 10/10/20 23:30 86 24 117/77 10/10/20 23:00 70 14 129/85 10/10/20 22:47 97.7 F 14 10/10/20 22:31 89 20 102/86 10/10/20 22:21 10/10/20 22:11 84 20 108/87 10/10/20 18:41 99.0 F 104 H 18 125/88 BP Pulse Ox 10/11/20 15:25 98 10/11/20 15:15 100 10/11/20 15:05 100 10/11/20 14:57 116/82 100 10/11/20 11:30 94 10/11/20 11:25 116/82 99 10/11/20 08:19 114/79 98 10/11/20 08:00 10/11/20 04:20 10/11/20 04:10 115/75 97 10/11/20 03:51 97 10/11/20 01:15 99 10/11/20 01:00 98 10/11/20 00:30 97 10/11/20 00:02 10/10/20 23:30 99 10/10/20 23:00 99 10/10/20 22:47 115/75 97 10/10/20 22:31 99 10/10/20 22:21 98 10/10/20 22:11 90 10/10/20 18:41 99 Pain Intensity Back: Pain Intensity: 3 Transfer of Care Handoff Completed per policy Notes Mental Status: alert / awake / arousable and participated in evaluation Patient Amnestic to Procedure: Yes Nausea / Vomiting: adequately controlled Pain: adequately controlled Airway Patency, RR, SpO2: stable & adequate BP & HR: stable & adequate Hydration State: stable & adequate Anesthetic Complications: no major complications apparent and Pt Satisfied with anesthetic care
[2020-10-11] MEDS ORDERED: LORazepam 0.5 MG/1 ML VIAL IV PRN (17:01)
[2020-10-11] MEDS ORDERED: ACETAMINOPHEN 1,000 MG/100 ML VIAL IV PRN (17:01)
[2020-10-11] MEDS ORDERED: FAMOTIDINE 20 MG TAB PO PRN (17:01)
[2020-10-11] MEDS ORDERED: ONDANSETRON 4 MG OD TAB PO PRN (17:01)
[2020-10-11] MEDS ORDERED: DO NOT ADMINISTER FLU VACCINE PRN (17:01)
[2020-10-11] MEDS ORDERED: hydrOXYzine HCl 25 MG TAB PO PRN (17:01)
[2020-10-11] MEDS ORDERED: ALUMINUM/MAGNESIUM SUSP 30 ML UDC PO PRN (17:01)
[2020-10-11] MEDS ORDERED: DO NOT ADMINISTER PNEUMOCOCCAL VACCINE PRN (17:01)
[2020-10-11] MEDS ORDERED: MAGNESIUM HYDROXIDE SUSP 30 ML UDC PO PRN (17:01)
[2020-10-11] MEDS ORDERED: NALOXONE HCL 0.4 MG/1 ML VIAL/CARP IV PRN (17:01)
[2020-10-11] MEDS ORDERED: diphenhydrAMINE Capsule 25 MG CAP PO PRN (17:01)
[2020-10-11] MEDS ORDERED: HYDROmorphone INJ 0.5 MG/0.5 ML SYR IV PRN (17:01)
[2020-10-11] MEDS ORDERED: bisacodyL 10 MG SUPP PR PRN (17:01)
[2020-10-11] MEDS ORDERED: ACETAMINOPHEN 500 MG TAB PO PRN (17:01)
[2020-10-11] MEDS ORDERED: METOCLOPRAMIDE HCL INJ 5 MG/ML 2 ML VIAL IV PRN (17:01)
[2020-10-11] MEDS ORDERED: PROMETHAZINE HCL 12.5 MG in SODIUM CHLORIDE 0.9% 50 ML IV PRN (17:01)
[2020-10-11] MEDS ORDERED: SOD PHOSPHATE/SOD BIPHOSPHATE ENEMA 132 ML BTL PR PRN (17:01)
[2020-10-11] MEDS ORDERED: HYDROmorphone INJ 1 MG/ML SYRINGE IV PRN (17:22)
--- NOTE | 2020-10-11 19:35 | Hospitalist Progress Note ---
Date of Service October 11, 2020 Assessment & Plan (1) Spinal abscess: Plan: Spinal Abscess - Lumbar MRI: midline subcutaneous tissues at L5-S1 level is a irregular collection measuring 4.4cm CC, 3 cm TRV and 3 cm AP with rim enhancement around the margins. Impression: superficial soft tissue abscess at L5-S1, small extradural abscess at laminectomy site. Epidural inflammation resulting in deformity of thecal sac. Inflammatory changes along right L5 and S1 nerve roots. - Spinal I&D today with antibiotics and ID consultation s/p surgery - Received IV vancomycin on admission. Now await ID input. - CBC normal, afebrile, nontoxic appearing. Morning CBC. - Q4h neurovascular checks, Q2H neuro exam checks - PRN tylenol for fever/pain - prn gabapentin for nerve pain Chronic Conditions: anx/depression: continue escitalopram PCOS: cont home OCP GERD: IV famotidine DVT ppx: low risk, will hold given surgery in AM FEN/GI: NPO, iv famotidine Dispo: Med/Tele Code Status: Full Code Admission and Anticipated Discharge Date Admission Date: October 10, 2020 Supervising Physician Co-Signing Physician Notes Resident Physician Supervision Note: I independently interviewed and examined the patient and verified the pierce history and physical, reviewed labs and image studies and agree with resident Dr. Canchola findings and care plan. Hayde Darnell is a pleasant 30 year old female presenting 1 month s/p L5-S1 microdi scectomy who was admitted yesterday for management of a post-op spinal abscess. Today she was seen at bedside and is doing well. She states that she has minimal discomfort in her lower back, but does report some numbness radiating down to her feet which was present prior to her disc removal. She otherwise has no complaints at this time and is ready to go to surgery to have the abscess drained. She reports a headache, but this is nothing unusual for her as she gets them frequently. She denies any fever, chills, n/v, chest pain, saddle anesthesia, urinary incontinence, or sob. She has no additional questions or complaints at this time. Review of Systems Review of Systems: All systems reviewed & are unremarkable except as noted in HPI & below Physical Exam Constitutional: WD/WN, vitals as above cooperative and comfortable; not intoxicated appearing Eyes: + anicteric sclerae Neck: trachea midline, no thyromegaly Respiratory: normal respiratory effort, lungs clear to auscultation Cardiovascular: RRR, no murmur, no edema Gastrointestinal (Abdomen): normal bowel sounds, soft, nontender, no hepatosplenomegaly Musculoskeletal: no cyanosis or clubbing, extremities motor strength 5/5 Skin: There is a surgical site covered with serous drainage, mild dehiscence with drainage at the level of L5-S1 Psychiatric: A+Ox3, euthymic affect Results & Data Results & Data ([facility]) Vital Signs (Past 12 Hours) Vital Signs Temp Pulse Pulse Pulse Pulse Resp BP 10/11/20 18:57 37 C 88 16 101/67 10/11/20 17:59 37.1 C 85 16 108/74 10/11/20 17:29 37.6 C H 95 H 16 121/81 10/11/20 17:00 37.6 C H 98 H 18 117/71 10/11/20 16:45 102 H 15 124/80 10/11/20 16:30 106 H 19 119/81 10/11/20 16:15 37.5 C 101 H 19 104/74 10/11/20 16:00 113 H 16 120/76 10/11/20 15:45 106 H 19 119/72 10/11/20 15:35 37.3 C 108 H 15 140/97 10/11/20 15:25 111 H 16 117/80 10/11/20 15:15 114 H 22 123/86 10/11/20 15:05 116 H 20 122/89 10/11/20 14:57 36.6 C 123 H 84 15 134/93 10/11/20 11:30 36.8 C 74 18 151/97 H 10/11/20 11:25 37 C 84 20 10/11/20 08:19 36.8 C 77 16 10/11/20 08:00 73 BP Pulse Ox 10/11/20 18:57 97 10/11/20 17:59 98 10/11/20 17:29 97 10/11/20 17:00 97 10/11/20 16:45 99 10/11/20 16:30 97 10/11/20 16:15 96 10/11/20 16:00 97 10/11/20 15:45 96 10/11/20 15:35 97 10/11/20 15:25 98 08/25/21 15:15 100 10/11/20 15:05 100 10/11/20 14:57 116/82 100 10/11/20 11:30 94 10/11/20 11:25 116/82 99 10/11/20 08:19 114/79 98 10/11/20 08:00
[2020-10-11] MEDS: ceFAZolin 1000MG 1,000 MG/7.5 ML SYR IV SCH (19:37)
[2020-10-11] MEDS: HYDROCODONE/ACETAMOPHEN 5/325MG TAB PO PRN (19:39)
[2020-10-11] MEDS: DOCUSATE SODIUM/SENNA 50/8.6MG TAB PO SCH (20:40)
--- NOTE | 2020-10-11 22:03 | Communication Note ---
Date of Service: October 11, 2020 Post-op routine neurological assessment completed Patient awake, alert No new neurological deficits noted Musculoskeletal: 5/5 motor strength bilateral L2-S1 except right L5 3/5 toe extension, 4/5 ankle dorsiflexion, right S1 4/5 (unchanged from before index surgery) Neurologic: Sensation 2/2 to light touch bilateral L2-S1 except right L5 1/2, S1 1/2
[2020-10-12] MEDS: HYDROCODONE/ACETAMOPHEN 5/325MG TAB PO PRN ×5 (02:34→22:13)
[2020-10-12] MEDS: GABAPENTIN 100 MG CAP PO SCH ×3 (02:34→19:48)
[2020-10-12] MEDS: ceFAZolin 1000MG 1,000 MG/7.5 ML SYR IV SCH (02:35)
[2020-10-12] MEDS: POLYETHYLENE (MIRALAX) 17 GM PACK PO SCH ×4 (05:36→19:57)
[2020-10-12 08:16] LABS: Basophils # (auto) 0.02 K/uL (0-0.2); Basophils % (auto) 0.3 %; Eosinophils # (auto) 0.07 K/uL (0-0.5); Eosinophils % (auto) 0.9 %; Hematocrit (blood only) 35.7 % (37-47); Hemoglobin 11.5 g/dL (12.0-16.0); Lymphocytes # (auto) 2.78 K/uL (1.2-3.4); Mean Corpuscular Hemoglobin 29.3 pg (25-34); Mean Corpuscular Hgb Conc 32.2 g/dL (32-36); Mean Corpuscular Volume 90.8 fL (80-100); Mean Platelet Volume 9.9 fL (7.4-10.4); Monocytes # (auto) 0.44 K/uL (0.11-0.59); Monocytes % (auto) 5.7 %; Neutrophils # (auto) 4.42 K/uL (1.4-6.5); Neutrophils % (auto) 57.1 %; Platelet Count 248 K/uL (130-400); RDW Coefficient of Variation 12.6 % (11.5-14.5); RDW Standard Deviation 42.4 fL (36.4-46.3); Red Blood Count 3.93 M/uL (4.2-5.4); White Blood Count 7.73 K/uL (4.8-10.8)
[2020-10-12 08:43] LABS: BUN Creatinine Ratio 6.6 (10-20); Calcium 8.6 mg/dl (8.5-10.1); Creatinine Clr Calc Pharmacy 92.2 ml/min; Est GFR (African American) 101.5 ml/min; Est GFR (Non-African American) 87.6 ml/min; Potassium 3.7 mmol/L (3.5-5.1)
[2020-10-12] MEDS: PANTOprazole 40 MG TAB PO SCH (09:34)
[2020-10-12] MEDS: ESCITALOPRAM OXALATE 20 MG TAB PO SCH (09:34)
--- NOTE | 2020-10-12 09:44 | Orthopedic Progress Note ---
Date of Service October 12, 2020 Assessment & Plan (1) Status post spinal surgery: Plan: continue to monitor drain output follow-up cultures ID consult pending, antibiotics as per ID/hospitalist service PICC line consent completed and ordered Admission and Anticipated Discharge Date Admission Date: October 10, 2020 Subjective Pain well-controlled Denies any radiation of pain to the lower extremity no new numbness/weakness Physical Exam Physical Exam: vitals: see vital signs section dressing: clean, dry intact drain: 0 deep/0 superficial cc/8hr vascular: no calf tenderness or swelling bilaterally. no signs of DVT Musculoskeletal: 5/5 motor strength bilateral L2-S1 except right L5 3/5 toe extension, 4/5 ankle dorsiflexion, right S1 4/5 (unchanged from before index surgery) . Neurologic: Sensation 2/2 to light touch bilateral L2-S1 except right L5 1/2, right S1 1/2. Results & Data ([facility]) Vital Signs (Past 12 Hours) Vital Signs Temp Pulse Resp BP BP Pulse Ox 10/12/20 07:32 36.9 C 79 16 116/79 98 10/12/20 02:32 37 C 83 16 100/64 97 10/11/20 22:21 36.9 C 63 16 99/62 L 97 Laboratory Results intra-op cultures pending, gram stains negative. PG Care Time/CCT Total # of Minutes Spent Total Time Spent with Patient: Total time spent is greater than 50% in coordination of care (as documented) at patient's floor/unit and/or counseling patient: Coding Level of Care Code None Diagnoses Status post spinal surgery Z98.890
--- NOTE | 2020-10-12 11:43 | Hospitalist Progress Note ---
Date of Service October 12, 2020 Assessment & Plan (1) Spinal abscess: Plan: Spinal Abscess - Lumbar MRI: midline subcutaneous tissues at L5-S1 level is a irregular collection measuring 4.4cm CC, 3 cm TRV and 3 cm AP with rim enhancement around the margins. Impression: superficial soft tissue abscess at L5-S1, small extradural abscess at laminectomy site. Epidural inflammation resulting in deformity of thecal sac. Inflammatory changes along right L5 and S1 nerve roots. - S/p Spinal I&D 10/12/2020. - ID consultation ordered. await input. - CBC normal, afebrile, nontoxic appearing. - Follow AM lab - CBC, BMP. - prn gabapentin for nerve pain Chronic Conditions: anx/depression: continue escitalopram PCOS: cont home OCP GERD: famotidine po DVT ppx: low risk, will hold given surgery in AM FEN/GI: famotidine po Dispo: Med/Tele Code Status: Full Code Admission and Anticipated Discharge Date Admission Date: October 10, 2020 Supervising Physician Co-Signing Physician Notes Resident Physician Supervision Note: I independently interviewed and examined the patient and verified the pierce history and physical, reviewed labs and image studies and agree with resident Dr. Canchola findings and care plan. Subjective Pt is 1 day s/p I&D of spinal abscess being seen while she is standing in her room. Pt states that she is doing well and has no complaints today. When asked what her pain level is, she states it is about a 4-5/10 in her lower back. She had received a dose of [place] this morning which she states is controlling her pain well. She also had taken 100 mg gabapentin for her radicular pain for her lower back. She had just gone to the bathroom prior to me entering the room. She states that she had no difficulty urinating. Her last bowel movement was 2 days ago, she is on a regular diet. Pt is aware that infectious disease is on consultation for her case. Pt has no complaints. Review of Systems Review of Systems: All systems reviewed & are unremarkable except as noted in HPI & below Physical Exam Constitutional: WD/WN, vitals as above Eyes: PERRL, conjunctivae normal, anicteric sclerae EOM intact bilaterally Neck: trachea midline, no thyromegaly Respiratory: normal respiratory effort, lungs clear to auscultation Cardiovascular: RRR, no murmur, no edema Gastrointestinal (Abdomen): normal bowel sounds, soft, nontender, no hepatosplenomegaly Musculoskeletal: no cyanosis or clubbing, extremities motor strength 5/5 Skin: There is a bandaged surgical wound on her lower back with drain present. Fluid in drain is bloody, but non-purulent. Psychiatric: A+Ox3, euthymic affect Motor Behavior: steady gait and station Lymphatic: no cervical or axillary lymphadenopathy Results & Data Results & Data ([facility]) Vital Signs (Past 12 Hours) Vital Signs Temp Pulse Resp BP BP Pulse Ox 10/12/20 07:32 36.9 C 79 16 116/79 98 10/12/20 02:32 37 C 83 16 100/64 97 Resident Activity Tracking Resident Involvement: Resident Care Provided Care Provided: Adult Hospital Medicine
--- NOTE | 2020-10-12 14:48 | Medical Student Progress Note ---
Date of Service October 12, 2020 Assessment & Plan (1) Spinal abscess: Plan: -s/p irrigation and debridement surgery; surgeon said no complications; surgery got PICC line consent approval -pt appears non-toxic, vitals all WNL -infectious disease will come in today to assess and recommend IV antibiotics -continue monitoring vitals and use recommendations from surgery/infectious disease to direct further care -Q4h neurovascular checks, Q2H neuro exam checks -PRN tylenol for fever/pain -prn gabapentin for nerve pain Present on Admission?: Yes Plan: DVT ppx:low risk FEN/GI: regular Dispo: Med/surg Code Status: Full Code Admission and Anticipated Discharge Date Admission Date: October 10, 2020 Hayde Darnell is a 30 yr/oF s/p irrigation and debridement of L5-S2 due to post- microdiscectomy abscess formation. Today, she feels great. She has minimal lower back discomfort. She denies chest pain, SOB, and abdominal pain. Her last bowel movement was Friday before coming to the hospital. She has no further concerns JEANNETTE. Review of Systems Review of Systems: All systems reviewed & are unremarkable except as noted in HPI & below Physical Exam Constitutional: WD/WN, vitals as above Eyes: PERRL, conjunctivae normal, anicteric sclerae Neck: normal visual inspection Respiratory: normal respiratory effort, lungs clear to auscultation Cardiovascular: RRR, no murmur, no edema Gastrointestinal (Abdomen): normal bowel sounds, soft, nontender, no hepatosplenomegaly Skin: Bandage on surgical site was clean and dry, there were no obvious signs of inflammation under or around the bandages, I did not remove bandages to look at surgical site Results & Data ([facility]) Vital Signs (Past 12 Hours) Vital Signs Temp Pulse Resp BP Pulse Ox 10/12/20 07:32 36.9 C 79 16 116/79 98 Laboratory Results Laboratory Results - last 24 hr 10/11/20 10/11/20 10/11/20 18:02 23:52 Unknown WBC RBC Hgb Hct MCV MCH MCHC RDW Std Deviation RDW Coeff of Rigo Plt Count MPV Immature Gran % (Auto) Neut % (Auto) Lymph % (Auto) [place] % (Auto) Eos % (Auto) Baso % (Auto) Neut # (Auto) Lymph # (Auto) [place] # (Auto) Eos # (Auto) Baso # (Auto) Immature Gran # (Auto) Sodium Potassium Chloride Carbon Dioxide Anion Gap BUN Creatinine Est Cr Clr Drug Dosing Est GFR ( Amer) Est GFR (Non-Af Amer) BUN/Creatinine Ratio Glucose POC Glucose 132 H 109 H Calcium Ref Lab Test Result Pending 10/11/20 10/12/20 10/12/20 Unknown 05:49 07:20 WBC 7.73 RBC 3.93 L Hgb 11.5 L Hct 35.7 L MCV 90.8 MCH 29.3 MCHC 32.2 RDW Std Deviation 42.4 RDW Coeff of Rigo 12.6 Plt Count 248 MPV 9.9 Immature Gran % (Auto) 0.0 Neut % (Auto) 57.1 Lymph % (Auto) 36.0 [place] % (Auto) 5.7 Eos % (Auto) 0.9 Baso % (Auto) 0.3 Neut # (Auto) 4.42 Lymph # (Auto) 2.78 [place] # (Auto) 0.44 Eos # (Auto) 0.07 Baso # (Auto) 0.02 Immature Gran # (Auto) 0.00 Sodium Potassium Chloride Carbon Dioxide Anion Gap BUN Creatinine Est Cr Clr Drug Dosing Est GFR ( Amer) Est GFR (Non-Af Amer) BUN/Creatinine Ratio Glucose POC Glucose 88 Calcium Ref Lab Test Result Pending 10/12/20 10/12/20 07:20 12:22 WBC RBC Hgb Hct MCV MCH MCHC RDW Std Deviation RDW Coeff of Rigo Plt Count MPV Immature Gran % (Auto) Neut % (Auto) Lymph % (Auto) [place] % (Auto) Eos % (Auto) Baso % (Auto) Neut # (Auto) Lymph # (Auto) [place] # (Auto) Eos # (Auto) Baso # (Auto) Immature Gran # (Auto) Sodium 138 Potassium 3.7 Chloride 109 H Carbon Dioxide 24 Anion Gap 6.0 BUN 6 L Creatinine 0.88 Est Cr Clr Drug Dosing 92.2 Est GFR ( Amer) 101.5 Est GFR (Non-Af Amer) 87.6 BUN/Creatinine Ratio 6.6 L Glucose 112 H POC Glucose 108 H Calcium 8.6 Ref Lab Test Result
--- NOTE | 2020-10-12 18:50 | Operative Report ---
PG Post Operative Report Pre & Post Diagnosis Operation Date: 10/11/20 08:40 Pre-Op Diagnosis: Post-op Lumbar Discectomy right L5-S1 with persistent drainage, seroma vs. infection Post-Op Diagnosis: Post-op Lumbar Discectomy right L5-S1 with persistent drainage, superficial and deep seroma vs. infection I identified the patient and participated in the time-out.: Yes Procedure Irrigation and Debridement Posterior Lumbar Spine (Deep and Superficial to Fascia) Surgeon Hermilo Colon MD Crozer Mg Matta PA-C Estimated Blood Loss 50 Findings Consistent with Post-Op Diagnosis No raheel purulent collection Serous fluid collection superficial to the fascia, large intact fascia layer small serous fluid collection in extradural space Specimens 1. swab culture superficial to fascia 2. tissue culture superficial to fascia 3. swab culture deep to fascia 4. tissue culture deep to fascia 5. swab culture extradural space all cultures sent for aerobes, anaerobes, yeast/fungus and AFB Description of Procedure Indications: who presented to my clinic first on July 10, 2020 with a 3 year history of disabling symptoms in the right lower extremity in keeping with disc herniation with radiculopathy affecting the right L5 and S1 nerves. MRI confirmed a right paracentral disc herniation at the level of L5-S1 with superior migration, impingement of right traversing S1 nerve root, and abutting the L5 exiting nerve root. Non-operative management was exhausted and after discussion about CEE injection, patient decided not to proceed with this option and opted for surgery instead. She underwent a right L5-S1 microdiscectomy on September 13, 2020. In her 2 week follow-up appointment (post-op day 16), she was noted to have continued serous drainage that was decreasing in amount since surgery. She was started on oral Cefazolin due to concern for underlying seroma with high risk for infection. She returned on post-op day 27 to my clinic with worsening and persistent discharge. She was admitted to hospital and underwent workup that demonstrated fluid collections above and below the fascia. Informed consent was obtained and patient was booked for above procedure. On day of surgery, patient was identified in pre-op holding area. History and Physical was updated, surgical site was marked, and consent was confirmed. Risks, benefits and alternatives were discussed again and I answered all their questions. Implants: none Drains: 1. 10 cuban hemovac drain x1 deep to fascia, x1 superficial to fascia Description of procedure: Patient was brought to the operating room and underwent general anesthesia. SCDs were applied to bilateral legs to reduce risk of DVT. Patient was place prone on a [place] frame. Face, eyes, bony prominences, and peripheral nerves were well protected. The lumbar spine was prepped with alcohol and Chloraprep and draped i n standard sterile fashion. A time-out was performed and documented. Antibiotics were held until the last cultures were obtained Previous midline incision was reopened. Significant serous fluid was encountered superficial to fascia. Cultures were sent through both swab and tissue samples. No purulent discharge was noted. Extensive debridement of tissue was performed and area was copiously irrigated via 3 litres of normal saline. Fascia was inspected and appeared intact. Fascia was opened and small amount of serous fluid was identified below the fascia. Swab and tissue sample cultures were sent form deep to fascia. Significant scarring of the paraspinal muscles to the spinous process was noted. This area was debrided and thorough irrigated via 3 litres of normal saline. Attention was then placed on identifying and exploring the epidural space. Scar tissue was bluntly dissected and a small amount of extradural serous fluid was identified deep to remaining lamina. A swab culture was sent. The area was further irrigated with 1 litre of normal saline The wound was then copiously irrigated further. No spinal fluid leaks were identified. The wound was assessed for any sources of bleed and hemostasis was achieved prior to closure. Two 10 cuban drains were inserted, one superficial and one deep to fascia. These were secured with 2.0 silk sutures and connected to hemovacs. Two grams of vancomycin powder was applied to the deep and superficial layers prior to closure. The wound was closed in layers with #1 PDS for fascia, 2-0 PDS sutures for fat layer and subcutaneous superficial closure, and 2-0 prolene interrupted sutures for skin. Sterile dressings were applied. The patient was then flipped supine, awakened and taken to the recovery room in stable condition. There were no intra-operative complications noted. Sponge and needle counts were correct x2 at the conclusion of the case. I attest to the content of the Intraoperative Record and any orders documented therein. Any exceptions are noted below.
[2020-10-12] MEDS: DOCUSATE SODIUM/SENNA 50/8.6MG TAB PO SCH (19:48)
[2020-10-13] MEDS: GABAPENTIN 100 MG CAP PO SCH ×3 (03:36→19:52)
[2020-10-13] MEDS: HYDROCODONE/ACETAMOPHEN 5/325MG TAB PO PRN ×4 (03:38→20:45)
[2020-10-13] MEDS: POLYETHYLENE (MIRALAX) 17 GM PACK PO SCH (04:41)
[2020-10-13] MEDS: ceFAZolin 1000MG 1,000 MG/7.5 ML SYR IV SCH ×2 (08:15→13:56)
[2020-10-13] MEDS: ESCITALOPRAM OXALATE 20 MG TAB PO SCH (08:16)
[2020-10-13] MEDS: PANTOprazole 40 MG TAB PO SCH (08:16)
--- NOTE | 2020-10-13 08:36 | Orthopedic Progress Note ---
Date of Service October 13, 2020 Assessment & Plan (1) Status post spinal surgery: Plan: continue to monitor drain output; will maintain drain in for now given concern for infection and previous issues with fluid collection follow-up cultures ID consult pending, antibiotics as per ID/hospitalist service PICC line insertion pending As I will be away at a conference starting this PM, I have discussed patient with Dr. Mervin Herrera, spine surgeon, and he will be taking over care of patient from spine surgery perspective at that point. Admission and Anticipated Discharge Date Admission Date: October 10, 2020 Subjective Pain well-controlled Denies any radiation of pain to the lower extremity no new numbness/weakness preliminary cultures negative so far except deep swab: "Pin-point growth present, reincubating." Physical Exam Physical Exam: vitals: see vital signs section dressing: clean, dry, intact; incision mild serosang discharge drain: 15 deep/0 superficial cc/8hr vascular: no calf tenderness or swelling bilaterally. no signs of DVT Musculoskeletal: 5/5 motor strength bilateral L2-S1 except right L5 3/5 toe e xtension, 4/5 ankle dorsiflexion, right S1 4/5 (unchanged from before index surgery) . Neurologic: Sensation 2/2 to light touch bilateral L2-S1 except right L5 1/2, right S1 1/2. Results & Data ([facility]) Vital Signs (Past 12 Hours) Vital Signs Temp Pulse Resp BP Pulse Ox 10/13/20 08:10 36.9 C 64 16 114/79 99 10/12/20 22:10 36.9 C 77 14 106/71 98 PG Care Time/CCT Total # of Minutes Spent Total Time Spent with Patient: Total time spent is greater than 50% in coordination of care (as documented) at patient's floor/unit and/or counseling patient: Coding Level of Care Code None Diagnoses Status post spinal surgery Z98.890
[2020-10-13 08:45] LABS: Hematocrit (blood only) 35.4 % (37-47); Hemoglobin 11.5 g/dL (12.0-16.0); Mean Corpuscular Hemoglobin 29.7 pg (25-34); Mean Corpuscular Hgb Conc 32.5 g/dL (32-36); Mean Corpuscular Volume 91.5 fL (80-100); Mean Platelet Volume 9.7 fL (7.4-10.4); Platelet Count 241 K/uL (130-400); RDW Coefficient of Variation 12.7 % (11.5-14.5); RDW Standard Deviation 42.8 fL (36.4-46.3); Red Blood Count 3.87 M/uL (4.2-5.4); White Blood Count 8.03 K/uL (4.8-10.8)
[2020-10-13 09:13] LABS: BUN Creatinine Ratio 14.2 (10-20); Calcium 8.8 mg/dl (8.5-10.1); Creatinine Clr Calc Pharmacy 122.9 ml/min; Est GFR (African American) 136.4 ml/min; Est GFR (Non-African American) 117.7 ml/min; Potassium 4.1 mmol/L (3.5-5.1)
[2020-10-13] MEDS: SENNA 8.6 MG TAB PO SCH (10:52)
--- NOTE | 2020-10-13 12:34 | Medical Student Progress Note ---
Date of Service October 13, 2020 Assessment & Plan (1) Status post spinal surgery: Plan: -pt feeling very well, vitals WNL -surgery team has received consent for PICC line -waiting on infectious disease to assess and give recommendations for antibiotics -currently on cefazolin 1000mg IV Q8 -[place] PO Q4 PRN -add sennosides 8.6 mg Qam Present on Admission?: Yes Plan: DVTppx: none code status: full code FEN/GI: regular diet dispo: med/surge Admission and Anticipated Discharge Date Admission Date: October 10, 2020 Hayde Darnell is a 30 yr/oF s/p I&D for spinal abscess. Today, she is doing well and anxious to get home. Pt has lower back pain over the surgical site especially with sitting up. She endorses to SOB, chest pain, abdominal pain. She notes a small headache. Her last bowel movement was Friday before coming to the hospital. Review of Systems Review of Systems: All systems reviewed & are unremarkable except as noted in HPI & below Physical Exam Constitutional: WD/WN, vitals as above Neck: normal visual inspection Respiratory: normal respiratory effort, lungs clear to auscultation Cardiovascular: RRR, no murmur, no edema Skin: Surgical dressing clean and dry without signs of inflammation. Neurologic: neurologic exam unremarkable Results & Data ([facility]) Vital Signs (Past 12 Hours) Vital Signs Temp Pulse Resp BP Pulse Ox 10/13/20 08:10 36.9 C 64 16 114/79 99 Laboratory Results Laboratory Results - last 24 hr 10/11/20 10/11/20 10/12/20 Unknown Unknown 18:22 WBC RBC Hgb Hct MCV MCH MCHC RDW Std Deviation RDW Coeff of Rigo Plt Count MPV Sodium Potassium Chloride Carbon Dioxide Anion Gap BUN Creatinine Est Cr Clr Drug Dosing Est GFR ( Amer) Est GFR (Non-Af Amer) BUN/Creatinine Ratio Glucose POC Glucose 114 H Calcium Ref Lab Test Result Pending Pending 10/13/20 10/13/20 10/13/20 00:01 06:00 08:05 WBC 8.03 RBC 3.87 L Hgb 11.5 L Hct 35.4 L MCV 91.5 MCH 29.7 MCHC 32.5 RDW Std Deviation 42.8 RDW Coeff of Rigo 12.7 Plt Count 241 MPV 9.7 Sodium Potassium Chloride Carbon Dioxide Anion Gap BUN Creatinine Est Cr Clr Drug Dosing Est GFR ( Amer) Est GFR (Non-Af Amer) BUN/Creatinine Ratio Glucose POC Glucose 103 H 105 H Calcium Ref Lab Test Result 10/13/20 08:05 WBC RBC Hgb Hct MCV MCH MCHC RDW Std Deviation RDW Coeff of Rigo Plt Count MPV Sodium 139 Potassium 4.1 Chloride 108 H Carbon Dioxide 27 Anion Gap 3.0 BUN 9 Creatinine 0.66 Est Cr Clr Drug Dosing 122.9 Est GFR ( Amer) 136.4 Est GFR (Non-Af Amer) 117.7 BUN/Creatinine Ratio 14.2 Glucose 86 POC Glucose Calcium 8.8 Ref Lab Test Result
--- NOTE | 2020-10-13 16:12 | Electrocardiogram Report ---
Test Reason : Blood Pressure : / mmHG Vent. Rate : 075 BPM Atrial Rate : 075 BPM P-R Int : 132 ms QRS Dur : 074 ms QT Int : 414 ms P-R-T Axes : 057 072 034 degrees QTc Int : 462 ms Poor data quality, interpretation may be adversely affected Normal sinus rhythm Normal ECG No previous ECGs available Confirmed by Benny Granado ([id number]) on 10/13/2020 4:11:48 PM Referred By: Hermilo Colon Confirmed By:Benny Granado
[2020-10-13] MEDS ORDERED: VANCOMYCIN CONSULT ACTIVE PRN (16:15)
--- NOTE | 2020-10-13 16:53 | Pharmacy Report ---
Pharmacy Vanc AUC Short Note - Date of Service October 13, 2020 - Assessment & Plan Assessment 30 year old F ordered vancomycin IV for post-op spinal abscess * patient s/p recent L5-S1 discectomy on 09/13/20 * Started on keflex at follow up ortho appointment for possible underlying seroma with potential risk for developing a deep infection. Patient states she took keflex for ~ 11 days. On 10/10 she was referred to the hospital for persistent drainage from her incision and further evaluation. * s/p I&D on 10/11; culture growing staph species * Maegan MARLOW risk assessment consultant recommended switch from cefazolin to vancomycin pending further culture results Plan Vancomycin * Loading dose: 2000 mg * Maintenance dose: 1250 mg (15.8 mg/kg) IV q8 hours * Aggressive dosing selected due to location of infection in young patient with great kidney function. * This regimen is predicted to achieve a AUC/JIMMY > 400 within the first 24 hours of therapy. Will need to back off dose within the next 36 hours as this dose will likely exceed goal AUC and trough * AUC/JIMMY is the preferred PK/PD target for vancomycin * AUC guided dosing is effective and associated with decreased risk of nephrotoxicity compared to traditional trough targets * Will obtain drug level 10/14 @ 1732 Pharmacy will continue to follow and will adjust dose/frequency as necessary. Thank you.
[2020-10-13] MEDS ORDERED: VANCOMYCIN HCL 2,000 MG in SODIUM CHLORIDE 0.9% 500 ML IV ONE (17:00)
--- NOTE | 2020-10-13 19:06 | Hospitalist Progress Note ---
Date of Service October 13, 2020 Assessment & Plan (1) Spinal abscess: Plan: Spinal Abscess - Lumbar MRI: midline subcutaneous tissues at L5-S1 level is a irregular collection measuring 4.4cm CC, 3 cm TRV and 3 cm AP with rim enhancement around the margins. Impression: superficial soft tissue abscess at L5-S1, small extradural abscess at laminectomy site. Epidural inflammation resulting in deformity of thecal sac. Inflammatory changes along right L5 and S1 nerve roots. - S/p Spinal I&D 10/12/2020. - ID recommended inpatient, IV vancomycin which has been ordered. - CBC normal, afebrile, nonill appearing - Follow AM lab - CBC - prn gabapentin for nerve pain - Senna tab ordered today to promote bowel movement. Chronic Conditions: anx/depression: continue escitalopram PCOS: cont home OCP GERD: famotidine po DVT ppx: low risk, no DVT ppx at this time FEN/GI: famotidine po Dispo: Med/Tele Code Status: Full Code Admission and Anticipated Discharge Date Admission Date: October 10, 2020 Supervising Physician Co-Signing Physician Notes Resident Physician Supervision Note: I independently interviewed and examined the patient and verified the pierce history and physical, reviewed labs and image studies and agree with resident Dr. Canchola findings and care plan. Subjective Pt seen at bedside today. No acute events reported overnight. Pt reports that she is doing overall well and has had no changes that she has noticed. She states that she would like to go home as soon as she can so she can get back to her children. She reports that she has been eating well, but has not had a bowel movement today or since she has been in the hospital. She reports that her pain is a 4-5/10 in her lower back. Pt has no other complaints at this time. Review of Systems 2 Review of Systems: All systems reviewed & are unremarkable except as noted in HPI & below Physical Exam Constitutional: WD/WN, vitals as above cooperative and comfortable; not intoxicated appearing Drain present with bloody, non-purulent discharge Eyes: PERRL, conjunctivae normal, anicteric sclerae EOM intact bilaterally Neck: trachea midline, no thyromegaly Respiratory: normal respiratory effort, lungs clear to auscultation Cardiovascular: RRR, no murmur, no edema Gastrointestinal (Abdomen): normal bowel sounds, soft, nontender, no hepatosplenomegaly Musculoskeletal: no cyanosis or clubbing, extremities motor strength 5/5 Psychiatric: A+Ox3, euthymic affect Motor Behavior: steady gait and station Lymphatic: no cervical or axillary lymphadenopathy Results & Data Results & Data ([facility]) Vital Signs (Past 12 Hours) Vital Signs Temp Pulse Resp BP BP Pulse Ox 10/13/20 15:58 36.9 C 80 16 108/75 95 10/13/20 08:10 36.9 C 64 16 114/79 99
[2020-10-13] MEDS: DOCUSATE SODIUM/SENNA 50/8.6MG TAB PO SCH (19:52)
[2020-10-14] MEDS: VANCOMYCIN HCL 1,250 MG in SODIUM CHLORIDE 0.9% 250 ML IV SCH ×3 (02:14→19:01)
[2020-10-14] MEDS: GABAPENTIN 100 MG CAP PO SCH ×3 (03:25→19:37)
[2020-10-14] MEDS: HYDROCODONE/ACETAMOPHEN 5/325MG TAB PO PRN ×4 (03:25→22:36)
[2020-10-14 05:44] LABS: Hematocrit (blood only) 33.9 % (37-47); Hemoglobin 10.8 g/dL (12.0-16.0); Mean Corpuscular Hgb Conc 31.9 g/dL (32-36); Mean Corpuscular Volume 90.9 fL (80-100); Mean Platelet Volume 9.4 fL (7.4-10.4); Platelet Count 211 K/uL (130-400); RDW Coefficient of Variation 12.4 % (11.5-14.5); RDW Standard Deviation 41.8 fL (36.4-46.3); Red Blood Count 3.73 M/uL (4.2-5.4); White Blood Count 6.21 K/uL (4.8-10.8)
[2020-10-14 06:18] LABS: Creatinine Clr Calc Pharmacy 135.2 ml/min; Est GFR (African American) 140.8 ml/min; Est GFR (Non-African American) 121.5 ml/min
[2020-10-14] MEDS: SENNA 8.6 MG TAB PO SCH (08:14)
[2020-10-14] MEDS: ESCITALOPRAM OXALATE 20 MG TAB PO SCH (08:14)
[2020-10-14] MEDS: PANTOprazole 40 MG TAB PO SCH (08:14)
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
--- NOTE | 2020-10-14 17:15 | Hospitalist Progress Note ---
Date of Service October 14, 2020 Assessment & Plan (1) Spinal abscess: Plan: Spinal Abscess - Lumbar MRI: midline subcutaneous tissues at L5-S1 level is a irregular collection measuring 4.4cm CC, 3 cm TRV and 3 cm AP with rim enhancement around the margins. Impression: superficial soft tissue abscess at L5-S1, small extradural abscess at laminectomy site. Epidural inflammation resulting in deformity of thecal sac. Inflammatory changes along right L5 and S1 nerve roots. - S/p Spinal I&D 10/12/2020. - Drained removed 10/14. - ID recommended IV vancomycin which has been ordered. Trough to be determined by pharmacy for outpatient dosing. - PICC line placed. - Once trough is determined, ID recommended pt to be on vanc for 4 weeks total through PICC line with weekly CBC, BMP, and Vanc trough. - CBC normal, afebrile, - prn gabapentin for nerve pain - Pt had bowel movement, switched senna tab to docusate Chronic Conditions: anx/depression: continue escitalopram PCOS: cont home OCP GERD: famotidine po DVT ppx: low risk, no DVT ppx at this time FEN/GI: famotidine po Dispo: Med/Tele. anticipate d/c home in am. Code Status: Full Code Admission and Anticipated Discharge Date Admission Date: October 10, 2020 Supervising Physician Co-Signing Physician Notes Resident Physician Supervision Note: I independently interviewed and examined the patient and verified the pierce history and physical, reviewed labs and image studies and agree with resident Dr. Canchola findings and care plan. Subjective Patient seen at bedside this morning. No acute events reported overnight. She states that she really wants to be discharged so that she can go home to her children. When asked how her children are doing, patient becomes tearful and states that they are doing pretty well and her is doing his best. She states that it has been difficult for her not being able to see her children which has been the most stressful part about being admitted into the hospital. She states medically she is doing well and reports 4-5 out of 10 pain on her lower back. She had taken 2 tabs of [place] prior to my arrival for pain. She denies any saddle paresthesia, urinary incontinence, weakness, fever, chills, nausea, or vomiting. Patient reports that she did have a bowel movement yesterday. Patient has no other complaints at this time. Review of Systems Review of Systems: All systems reviewed & are unremarkable except as noted in HPI & below Physical Exam Constitutional: WD/WN, vitals as above cooperative and comfortable Eyes: PERRL, conjunctivae normal, anicteric sclerae EOM intact bilaterally Neck: trachea midline, no thyromegaly Respiratory: normal respiratory effort, lungs clear to auscultation Cardiovascular: RRR, no murmur, no edema Gastrointestinal (Abdomen): normal bowel sounds, soft, nontender, no hepatosplenomegaly Musculoskeletal: no cyanosis or clubbing, extremities motor strength 5/5 Neurologic: moves all extremities Psychiatric: A+Ox3, euthymic affect Motor Behavior: steady gait and station Lymphatic: no cervical or axillary lymphadenopathy Results & Data Results & Data ([facility]) Vital Signs (Past 12 Hours) Vital Signs Temp Pulse Resp BP Pulse Ox 10/14/20 16:26 37.0 C 77 16 109/73 99 10/14/20 08:05 36.9 C 80 16 105/70 98
[2020-10-14] MEDS ORDERED: VANCOMYCIN TROUGH ONE (17:30)
--- NOTE | 2020-10-14 19:06 | Pharmacy Report ---
Pharmacy Abx Dose Short Note - Date of Service October 14, 2020 - Assessment & Plan Assessment 30 year old F receiving IV Vancomycin for treatment of spinal abscess s/p microdiscectomy Day # 05/14 of antimicrobial therapy. Culture still states staph species, ID suspects CoNS and recommends 4 weeks IV Vancomycin therapy. Plan Vancomycin * Trough level of 16.5 mcg/mL is therapeutic, renal function good and stable * Change to 1750 mg IV every 12 hours @ 7 AM and 7 PM for continued outpatient dosing at Q12H interval * Patient leaving after both doses tomorrow, HH Starting Friday, advise checking trough level on Friday or Friday. Pharmacy will continue to follow and will adjust dose/frequency as necessary. Thank you.
[2020-10-14] MEDS: VANCOMYCIN HCL 1,750 MG in SODIUM CHLORIDE 0.9% 500 ML IV SCH (19:35)
[2020-10-14] MEDS: DOCUSATE SODIUM 100 MG CAP PO SCH (19:37)
[2020-10-15] MEDS: GABAPENTIN 100 MG CAP PO SCH ×3 (04:19→21:08)
[2020-10-15 06:09] LABS: Hematocrit (blood only) 33.5 % (37-47); Hemoglobin 10.9 g/dL (12.0-16.0); Mean Corpuscular Hemoglobin 29.5 pg (25-34); Mean Corpuscular Hgb Conc 32.5 g/dL (32-36); Mean Corpuscular Volume 90.5 fL (80-100); Mean Platelet Volume 9.7 fL (7.4-10.4); Platelet Count 213 K/uL (130-400); RDW Coefficient of Variation 12.3 % (11.5-14.5); RDW Standard Deviation 40.9 fL (36.4-46.3); White Blood Count 5.47 K/uL (4.8-10.8)
[2020-10-15] MEDS: VANCOMYCIN HCL 1,750 MG in SODIUM CHLORIDE 0.9% 500 ML IV SCH ×2 (06:41→18:23)
[2020-10-15] MEDS: HYDROCODONE/ACETAMOPHEN 5/325MG TAB PO PRN ×3 (08:10→21:08)
[2020-10-15] MEDS: PANTOprazole 40 MG TAB PO SCH (08:13)
[2020-10-15] MEDS: ESCITALOPRAM OXALATE 20 MG TAB PO SCH (08:14)
[2020-10-15] MEDS: DOCUSATE SODIUM 100 MG CAP PO SCH ×2 (08:14→21:08)
--- NOTE | 2020-10-15 16:14 | Discharge Summary ---
Date of Service October 15, 2020 Admission HPI Per Admitting Provider 30 yo F 2 weeks post op from L5-S1 microdiscectomy on 09/13/20, sent to ER by spine surgeon for persistently draining incision site. Was started on keflex for 14 days on 09/29 for incision infection, but has had persistent drainage despite antibiotic therapy. She denies any nausea, vomiting, diarrhea, new numbness/tingling/weakness in the lower extremities. She denies any incontinence of urine/stool, no pelvic numbness/tingling. No fevers/chills/night sweats. Lumbar spine MRI showing abscess superficial to spinal cord but with epidural inflammation. Admission for antibiotic management and surgery in the AM. Admission Exam Per Admitting Provider Constitutional: well, healthy appearing 30 year old female Eyes: EOMI, pupils equal and reactive bilaterally, no scleral icterus Cardiac: RRR, no murmurs, gallops or rubs. Normal S1, S2 Pulm: CTA BL, no wheezes, rhonchi, crackles or rubs, moving air well throughout both lungs Abd: soft, nontender, nondistended, normal bowel sounds, no rebound or guarding Extremities: 2+ peripheral pulses, no edema Neuro: no focal deficits, moving all 4 limbs, A&Ox3, sensation intact Back: spinal incision with some serous drainage onto bandage, visible draining hole Principal Diagnosis Spinal Abscess Discharge Exam Constitutional WD/WN, vitals as above cooperative and comfortable Eyes PERRL, conjunctivae normal, anicteric sclerae EOM intact bilaterally Neck trachea midline, no thyromegaly Respiratory normal respiratory effort, lungs clear to auscultation Cardiovascular RRR, no murmur, no edema Gastrointestinal (Abdomen) normal bowel sounds, soft, nontender, no hepatosplenomegaly Musculoskeletal no cyanosis or clubbing, extremities motor strength 5/5 Neurologic moves all extremities Psychiatric A+Ox3, euthymic affect Motor Behavior: steady gait and station Lymphatic no cervical or axillary lymphadenopathy Discharge Data Allergies Allergy/AdvReac Type Severity Reaction Status Date / Time No Known Allergies Allergy Verified 10/10/20 22:03 Consultations 10/11/20 16:06 Consult Infectious Diseases Routine 10/13/20 12:00 Consult Orthopedic Surgery Routine Procedures Performed Operation Date: 10/11/20 08:40 Actual Procedures p Incision and Drainage Posterior Lumbar Spine(Bilateral) - Hermilo Colon MD Ordered Studies 10/10/20 20:38 MR lumbar spine wo/w con Urgent Hospital Course (1) Spinal abscess: Spinal Abscess - Lumbar MRI: midline subcutaneous tissues at L5-S1 level is a irregular collection measuring 4.4cm CC, 3 cm TRV and 3 cm AP with rim enhancement around the margins. Impression: superficial soft tissue abscess at L5-S1, small extradural abscess at laminectomy site. Epidural inflammation resulting in deformity of thecal sac. Inflammatory changes along right L5 and S1 nerve roots. - S/p Spinal I&D 10/12/2020. - Was kept on IV vancomycin. - ID recommended pt to be on vanc for 4 weeks total through PICC line with weekly CBC, BMP, and Vanc trough. - pain control with home dose of gabapentin/hydrocodone Chronic Conditions: anx/depression: continue escitalopram PCOS: cont home OCP DVT ppx: low risk Dispo: Home with home health services for antibiotics Code Status: Full Code Total Time Total Time Spent Total Time Spent (In Minutes): 30 Discharge Plan Discharge Items Patient Disposition: Home - Home Health Services Reason For Visit: SPINAL ABSCESS Discharge Diagnosis: S/P Spinal Abscess I&D Activity: Per Instructions section Non-emergency contact: Primary Care Provider Call non-emergency contact if: you have any medication questions, your symptoms worsen, your pain is unusual for you and your temperature is above 101 Follow-up/Referrals: Hermilo Colon MD [Physician] - Diandra Ray CRNP [Primary Care Provider] - Diet: Regular Addtl Attending Provider Instructions: You were seen in the hospital for a spinal abscess that had developed status post microlaminectomy. While you were here, an incision and drainage of the abscess was performed by the spine surgeon. You were started on IV antibiotics while you were in the hospital. An infectious disease consultation was made and they determined that you should receive 4 weeks of vancomycin IV via your PICC line. You are to have weekly CBC, CMP, and vancomycin troughs while being treated. Follow-up with your PCP within 1 week. Follow-up with the spinal surgeon as they deem appropriate. It was a pleasure to take care of you and your health needs while you were in the hospital and we wish you the best on your recovery. Addtl Field Marketing Team Leader Provider Instructions: Dr. Colon - spine surgery: Please see me in our previously arranged follow-up appointment on Oct 26 for a wound check and clinical assessment. Pending Studies at Discharge: No Stand-Alone Forms: My [facility], Opioid Pain Management, Smoking Cessation Medications and DC Order Prescriptions: New vancomycin 1.5 gram recon soln 1.75 g IV Q12H 26 Days RF: 0 Continued lorazepam 0.5 mg tablet 0.5 mg PO DAILY PRN (Reason: anxiety) Qty: 30 RF: 0 omeprazole 20 mg capsule,delayed release(DR/EC) 20 mg PO QAM RF: 0 escitalopram oxalate 20 mg tablet 20 mg PO QAM RF: 0 hydrocodone-acetaminophen 5-325 mg Tablet 1 - 2 tab PO Q4H PRN (Reason: pain) Qty: 20 RF: 0 gabapentin 100 mg capsule 100 mg PO Q8H Qty: 42 RF: 0 drospirenone-ethinyl estradiol [[place] (28)] 3-0.02 mg tablet 1 tab PO DAILY RF: 0 Discontinued cephalexin 500 mg tablet 500 mg PO Q6H 14 Days Qty: 56 RF: 1 Discharge Orders: Discharge Order (Routine); Ordered 10/15/20 Ordered By: Ramiro Randolph/Other Patient Handouts: Nutrition After Surgery, Nutrition and MyPlate: Protein Foods Admission Data Admit Date/Time: 10/10/20 23:28 Attending Provider: Denise Johnson Admit Provider: Sandra Raygoza Primary Care Provider: Diandra Ray Other Providers: Vidal Beaver ; Oj Sifuentes ; Cesario Wise I. ; Pepito Navarro II ; Cecilia Conley ; Linus Navarrete ; [facility] ; Ken Herrera Other Interventions: Discharge Summary Assessment (RN) Last Done: 10/15/20 14:30 Supervising Physician Co-Signing Physician Notes Resident Physician Supervision Note: I independently interviewed and examined the patient and verified the pierce history and physical, reviewed labs and image studies and agree with resident Dr. Canchola findings and care plan. [facility] Attestation I certify that this patient is under my care and that I, or a physicians a ssistant working with me, had a face to-face encounter that meets the [facility] [id number] encounter requirements with this patient. The encounter with the patient was in whole, or in part, for the following medical condition, which is the primary reason for home health care (list medical condition): s/p spinal abscess I&D. I certify that, based on my findings, the following services are medically necessary home health services: IV drug administration. My clinical findings support the need for the above services because the patient requires home IV antibiotic administration. Further, I certify that my clinical findings support that this patient is homebound (i.e. absences from home require considerable and taxing effort and are for medical reasons or [employer] [facility] or infrequently or of short duration when for other reasons) because the patient does not require care outside of IV antibiotic administration. Certification for Home Health Services: Based on the above findings, I certify that this patient is confined to the home and needs intermittent fpc care, physical therapy and/or speech therapy or continues to need occupational therapy. The patient is under my care, and I have initiated the establishment of the plan of care. This patient will be followed by a physician who will periodically review the plan of care.
== END 2020-10-15 21:31 | disposition home health service (06) | DRG 856 ==
LOC: ED 18:29 → 2W 23:28 → SUATTDRO 23:28 → 2W 10-11 01:45 → 3W 10-11 16:57